=== PATIENT | female | born 1940 | race Caucasian/White ===

== ENCOUNTER 2016-10-29 17:21 | Inpatient (IN) | payer MEDICARE, MEDICAID ==
[~2016-10-29] VITALS: Ht 160 cm; Wt 117.9 kg
--- NOTE | ~2016-10-29 | HEMODYNAMI ---
PATIENT:JARET CASTILLO MEDICAL RECORD: [id number] : 38 [place] [id number] ADMISSION DATE: 10/29/16 Generatedon:11/09/201612:21 Patient name: JARET CASTILLO Patient #: [id number] SSN: : Date of study: 11/09/2016 Page: Of Hemodynamic Procedure Report Patient Data Patient Demographics Procedure consent was obtained First Name: JARET Gender: Female Last Name: ANNA : 1940 Middle Initial: L Age: 76 year(s) Patient #: [id number] Race: Unknown Additional ID: [id number] Contact details Address: [address] [address] State: [place] City: [place] Zip code: [address] Admission Admission Data Admission Date: 10/29/2016 Admission Time: 20:02 Room #: [facility] Height (in.): 63 BSA: 2.16 (m2) Height (cm.): 160.02 BMI: 45.88 (kg/m2) Weight (lbs.): 259 Weight (kg.): 117.48 Procedure Procedure Types Cath Procedure Peripheral Cath Diagnostic Procedure Cath Peripheral Biliary Percutaneous Cholecystostomy Procedure Description Procedure Date Procedure Date: 11/09/2016 Procedure Start Time: 12:04 Procedure Staff Name Function Jeremiah Cavanaugh MD Performing Physician Lawrence Cobos RT Scrub Karolina Stanley RT Greenskeeper Danyelle Esparza RN Nurse Cori Brown RN Nurse Karolina Stanley RT Monitor Procedure Data Cath Procedure Fluoroscopy Diagnostic fluoroscopy Total fluoroscopy Time: 0.8 time: 0.8 min min Diagnostic fluoroscopy Total fluoroscopy dose: 27 dose: 27 mGy mGy Procedure Medications Medication Administration Route Dosage Fentanyl I.V. 50 mcg Rocephin I.V. 1 g Zofran I.V. 4 mg Hemodynamics Rest BSA: 2.16 (m2) O2 Consumption: Estimated: 190.09 (ml/min) O2 Consumption indexed : Estimated:88 (ml/min/m) Heart Rate: 64 (bpm) Snapshots Pre Cath Intra NCS Post Cath Vital Signs Time Heart Resp SPO2 NIBP (mmHg) Rhythm Pain Status Sedation Rate (ipm) (%) Level (bpm) 11:52:39 63 11 100 166/70(131) NSR 5 (11) , Very 10(A) distressing 11:57:28 63 13 99 147/66(115) NSR 5 (11) , Very 10(A) distressing 12:02:14 62 13 98 157/67(108) NSR 4 (11) , 10(A) Distressing 12:07:05 63 11 99 155/67(107) NSR 3 (11) , 10(A) Tolerable 12:11:52 63 12 100 157/62(113) NSR 2 (11) , 10(A) Uncomfortable 12:16:45 61 11 99 145/64(104) NSR 0 (11) , No 10(A) pain Medications Time Medication Route Dose Verified Delivered Reason Notes Effectiv eness by by 12:03:13 Fentanyl I.V. 50 Danyelle Danyelle for mcg Vilma Vilma sedation RN RN 12:07:35 Rocephin I.V. 1 g Danyelle Danyelle for Vilma Vilma prophylaxis RN RN 12:13:21 Zofran I.V. 4 mg Danyelle Danyelle for nausea Vilma Vilma RN collator Log Time Note 11:17:42 Patient Weight : 259 kg 11:17:48 Patient Height : 63 cm 11:19:25 Use device set IR Diagnostic 11:19:27 Sterile Angiographic Pack opened to sterile field. 11:19:28 Bag Decanter opened to sterile field. 11:34:14 Time tracking: Regular hours 11:44:42 Plan of Care:Hemodynamics will remain stable., Cardiac rhythm will remain stable., Comfort level will be maintained., Respiratory function will remain adequate., Patient/ family verbilizes understanding of procedure., Procedure tolerated without complication., Recovers from procedure without complications.. 11:44:47 Signed procedure consent form obtained from patient. 11:44:48 - 11:45:01 H&P Date Dictated: 11/09/2016 Within 30 days and on chart.. 11:45:03 Pre-procedure instructions explained to patient. 11:45:04 Pre-op teaching completed and patient verbalized understanding. 11:45:08 Family in waiting room. 11:45:12 Patient NPO since Midnight. 11:45:14 - 11:45:23 ----Pre-sedation anethsthesia assessment.---- 11:45:27 Previous problem with sedation/anesthesia? No ? 11:45:29 Snore? Yes 11:49:25 Sleep apnea? Yes 11:49:27 Deviated septum? No 11:49:29 Opens mouth fully? Yes 11:49:31 Sticks out tongue? Yes 11:49:49 Airway obstruction? No but has cad 11:49:54 Dentures? No ? 11:50:06 IV patent on arrival in Left upper armpicc line with 0.9% NaCl at [facility]. 11:50:30 Right abdomen area was prepped with chlora-prep and draped in sterile fashion 11:50:34 Alarms reviewed by Macy Fuentes 11:50:35 Sharps counted by scrub and verified by Miladys 11:50:36 - 11:50:57 ECG and BP/O2 sat monitors applied to patient. 11:50:58 Vital chart was started 11:51:00 Baseline sample Acquired. 11:51:02 Full Disclosure recording started 11:51:03 - 12:00:25 CHIBA 18 X 15 needle opened to sterile field. 12:00:27 Cook BENTSON 145cm guide wire opened to sterile field. 12:02:41 Patient diabetic? No. 12:02:47 Physician arrived 12:03:13 Fentanyl 50 mcg I.V. was administered by Danyelle Esparza RN; for sedation; 12:03:55 --------ALL STOP TIME OUT------ 12:03:56 Final Timeout: patient, procedure, and site verified with staff and physician. All members of the team are in agreement. 12:04:15 Physical assessment completed. ASA score P 3 - A patient with severe systemic disease as per Jeremiah Cavanaugh MD. 12:04:20 Sedation plan: IV Moderate Sedation Fentanyl 12:04:26 Procedure started. 12:04:33 Local anesthetic to Abdominal area with Lidocaine 1% by Jeremiah Cavanaugh MD.INITIAL ACCESS ONLY 12:07:35 Rocephin 1 g I.V. was administered by Danyelle Esparza RN; for prophylaxis; 12:13:21 Zofran 4 mg I.V. was administered by Danyelle Esparza RN; for nausea; 12:14:38 Abscession 8Fr drainage catheter opened to sterile field. 12:14:49 STOPCOCK 3-WAY LARGE BORE opened to sterile field. 12:15:12 8fr abscession drain placed in the gallbladder 12:15:27 Procedure ended.(Physican Out) 12:15:39 Fluoroscopy time 00.80 minutes. 12:15:44 Fluoroscopy dose: 27 mGy 12:15:44 Flurop Dose total: 27 12:16:13 Procedure and supply charges have been captured, reviewed, submitted an d are correct. 12:21:07 Vital chart was stopped Device Usage Item Name Manufacture Quantity Catalog Hospital Part Current [facility] l Lot# / Number Charge Number Stock Stock Serial# Code Sterile Cardinal 1 [id number] Angiographic Health Pack Bag Decanter [employer] 1 [id number] 5 [employer] CHIBA 18 X [facility] 1 [id number] 5 15 needle [employer] [facility] 1 [id number] [id number] 5 [id number] 145cm guide wire Abscession Angiodynamics 1 [id number] 248638 [id number] [id number] 5 8Fr drainage [facility] [id number] [id number] 5 [id number] 3-WAY LARGE BORE Signature Audit [place] Stage Time Signature Unsigned Intra-Procedure 11/09/2016 Karolina Stanley 12:21:05 PM RT(R) Signatures Monitor : Karolina Stanley RT Signature : Date : Time : [address] [place] [address]
[2016-10-29 18:44] LABS: BASOPHILS 0.1 % (0.0-2.0); EOSINOPHILS 0.1 % (0-7); HEMOGLOBIN 10.7 g/dL (12-16); IMMATURE GRANULOCYTES 0.1 % (0-5); LYMPHOCYTES 4.9 % (15-50); MCH 29.4 pg (26.0-34.0); MCHC 32.4 g/dL (31.0-37.0); MCV 90.7 fL (80.0-100.0); MEAN PLATELET VOLUME 10.3 fL (7.4-10.4); MONOCYTES 5.9 % (2-11); NEUTROPHILS 88.9 % (40-80); PLATELET COUNT 153 10x3/uL (130-400); RBC 3.64 10x6/uL (4.00-5.40); WBC 15.9 10x3/uL (4.8-10.8)
[2016-10-29 19:02] LABS: ALBUMIN 3.1 g/dL (3.4-5.0); ALKALINE PHOSPHATASE 139 U/L (46-116); ALT (SGPT) 25 U/L (10-68); BILIRUBIN - TOTAL 1.59 mg/dL (0.2-1.3); CALC OSMOLALITY 303 mosm/kg (275-300); CALCIUM 8.8 mg/dL (8.5-10.1); CARBON DIOXIDE 29.8 mmol/L (21.0-32.0); CHLORIDE - SERUM 101 mmol/L (98-107); CREATININE - SERUM 2.2 mg/dL (0.6-1.3); GLUCOSE 255 mg/dL (74-106); PROTEIN - SERUM 7.5 g/dL (6.4-8.2); SODIUM 139 mmol/L (136-145); UREA NITROGEN 60 mg/dL (7-18); eGFR NON AFRICAN AMERICAN 23 mL/min (90-120)
[2016-10-29 19:17] LABS: CKMB 1.2 U/L (0.0-3.6); PRO BNP 9145 pg/mL (0-450)
[2016-10-29 19:18] LABS: TROPONIN-I 0.256 ng/mL (0.000-0.060)
[2016-10-29 20:20] LABS: APTT 34.7 SECONDS (22.8-39.4); INR 1.85 (0.85-1.17); PROTIME 21.3 SECONDS (11.6-15.0)
--- NOTE | 2016-10-29 22:23 | NUR ---
RECIEVED PT TO FLOOR FROM ED VIA STRETCHER. PT ASSISTED WITH TRANSFER TO BED. ALERT AND ORIENTED AND ABLE TO VERBALIZE NEEDS. IV IS PATENT AND SALINE LOC. O2 @ 4 PER NASAL CANNULA. PT DENIES ANY PAIN AT THIS TIME. NO NEEDS ARE VERBALIZED AT THIS TIME. VSS. PT IS ORIENTED TO ROOM AND USE OF CALL LIGHT. WILL CONTINUE TO MONITOR. SIDE RAILS ARE UP X 2. BED IS IN LOWEST POSITION. BED ALARM IS ON FOR SAFETY. CALL LIGHT IS WITHIN REACH.
[2016-10-30] MEDS ORDERED: CORDARONE200 MG PO (00:29)
[2016-10-30] MEDS ORDERED: LEVOTHYROXINE50 MCG PO (00:29)
[2016-10-30] MEDS ORDERED: COUMADIN3 MG PO ×2 (00:31→00:32)
[2016-10-30] MEDS ORDERED: FUROSEMIDE40 MG PO ×2 (00:33)
[2016-10-30] MEDS ORDERED: HYDROCODONE-APA1 TAB PO (00:34)
[2016-10-30] MEDS ORDERED: VALIUM 2 MG TAB2 MG PO (00:35)
[2016-10-30] MEDS ORDERED: LEVAQUIN250 MG PO (00:35)
[2016-10-30] MEDS ORDERED: OMEPRAZOLE20 M1 PO (00:36)
[2016-10-30] MEDS ORDERED: LIPITOR80 MG PO (00:36)
[2016-10-30] MEDS ORDERED: PROZAC20 MG PO (00:37)
[2016-10-30] MEDS ORDERED: LANTUS INSULIN10 ML SC (00:38)
[2016-10-30] MEDS ORDERED: NOVOLOG100 U/M1 SC (00:38)
[2016-10-30] MEDS ORDERED: ALPHAGAN P15 ML EACH EYE (00:39)
[2016-10-30] MEDS ORDERED: ZYLOPRIM100 MG PO (00:39)
[2016-10-30] MEDS ORDERED: PROBIOTIC1 EAC1 PO (00:40)
[2016-10-30] MEDS ORDERED: OMEGA 3 FISH OI1 CAP PO (00:40)
[2016-10-30] MEDS ORDERED: TYLENOL PM1 TAB PO (00:41)
--- NOTE | 2016-10-30 00:45 | NUR ---
ADMIT ASSESSMENT COMPLETED. BUMEX HUNG PER ORDER. PT RECIEVED 12 UNITS INSULIN PER SLIDING SCALE FOR GHQI=231. NO NEEDS ARE VOICED. WILL MONITOR. SIDE RAILS X 2. BED LOW. BED ALARM ON. CALL LIGHT IN REACH.
[2016-10-30 04:00] VITALS: BP 131/46
[2016-10-30 04:03] VITALS: BP 148/58; BMI 44.3
[2016-10-30 06:27] LABS: BASOPHILS 0.1 % (0.0-2.0); EOSINOPHILS 0.2 % (0-7); HEMATOCRIT 31.7 % (36.0-48.0); HEMOGLOBIN 10.2 g/dL (12-16); IMMATURE GRANULOCYTES 0.2 % (0-5); LYMPHOCYTES 17.6 % (15-50); MCH 29.3 pg (26.0-34.0); MCHC 32.2 g/dL (31.0-37.0); MCV 91.1 fL (80.0-100.0); MONOCYTES 10.8 % (2-11); NEUTROPHILS 71.1 % (40-80); PLATELET COUNT 142 10x3/uL (130-400); RBC 3.48 10x6/uL (4.00-5.40); RDW 15.4 % (11.5-14.5); WBC 12.2 10x3/uL (4.8-10.8)
[2016-10-30 07:10] LABS: CALCIUM 8.3 mg/dL (8.5-10.1); CARBON DIOXIDE 24.6 mmol/L (21.0-32.0); CHLORIDE - SERUM 102 mmol/L (98-107); CKMB 1.4 U/L (0.0-3.6); CREATINE KINASE 75 UL (21-215); POTASSIUM - SERUM 4.2 mmol/L (3.5-5.1); SODIUM 140 mmol/L (136-145); UREA NITROGEN 63 mg/dL (7-18); eGFR NON AFRICAN AMERICAN 25 mL/min (90-120)
[2016-10-30 07:11] LABS: CALC OSMOLALITY 297 mosm/kg (275-300); GLUCOSE 109 mg/dL (74-106)
[2016-10-30 07:12] LABS: TROPONIN-I 0.574 ng/mL (0.000-0.060)
--- NOTE | 2016-10-30 07:53 | NUR ---
AWAKE AND ALERT. ORIENTED X3. NO C/O AT THIS TIME. LUNGS ARE CLEAR BUT DIMINISHED. DENIES COUGH. SKIN IS INTACT WITHOUT REDNESS EXCEPT LEFT LEG WHICH IS REDDENED AND EDEMATOUS, RIGHT LEG IS ALSO EDEMATOUS BUT NOT REDDENED. WILL MONITOR. IV TO LEFT UPPER ARM IS PATENT WITHOUT REDNESS AT INSERTION SITE. DENIES NEEDS AT THIS TIME.
[2016-10-30 08:13] VITALS: BP 130/40
--- NOTE | 2016-10-30 10:24 | NUR ---
RESTING QUIETLY WITH EYES CLOSED. RESPIRATIONS EVEN AND UNLABORED.
--- NOTE | 2016-10-30 11:12 | NUR ---
Patient Name: JARET CASTILLO Admission Status: ER Accout number: [id number] Admission Date: 10-29-2016 : 1940 Admission Diagnosis: Attending: DANITZA Current LOS: 1 Anticipated DC Date: 11-02-2016 Planned Disposition: Home with Home Health Primary Insurance: MEDICARE A & B Discharge Planning Comments: CM MET WITH PATIENT AND DAUGHTERS (ALEXA, AND CORWIN) REGARDING D/C NEEDS AND PLANS. PATIENT STATED SHE LIVES ALONE AND IS PARTIAL DEPENDENT WITH HER CARE. PATIENT HAS A ROLATOR WALKER, WHEELCHAIR, C-PAP, SHOWER CHAIR, AND BS COMMODE AT HOME. PATIENT HAS NO STEPS OR STAIRS TO ENTER HER HOME. PATIENTS PCP IS DR. ROMAN RICARDO IN [place] AND USES [email or web address]. PATIENT IS CURRENT WITH [facility] AND THE AIDE HELPS HER WITH HER BATH, AND DRESSING. CM WILL CONTINUE TO FOLLOW PATIENT WITH D/C NEEDS AND PLANS. PCP DR. ROMAN RICARDO [facility]- [phone] ALEXA CALVIN (DAUGHTER) [phone] CORWIN YELENA (DAUGHTER) [phone] Jewel Oliving Machine Operator: Yady Harmon Is the patient Alert and Oriented? Yes 0 * How many steps to enter\exit or inside your home? 0 0 * PCP DR. ROMAN RICARDO ([facility]) 0 * Pharmacy [facility] 0 * Preadmission Environment Home Alone 0 * ADLs Independent 0 * Equipment Bedside Commode CPAP Rolling Walker Shower Chair Wheelchair 0 * List name and contact numbers for known caregivers / representatives who currently or will assist patient after discharge: ALEXA CALVIN (DAUGHTER) [phone] CORWIN YELENA (DAUGHTER) [phone] 0 * Community resources currently utilized Home Health 0 * Please name any agencies selected above. [facility] 0 * Additional services required to return to the preadmission environment? Yes 0 * Can the patient safely return to the preadmission environment? Yes 0 * Has this patient been hospitalized within the prior 30 days at any hospital? No 0 Grand Total: 0
[2016-10-30 12:18] VITALS: BP 122/47
[2016-10-30 14:15] VITALS: Ht 160 cm; Wt 117.9 kg
[2016-10-30 15:52] VITALS: BP 123/42
--- NOTE | 2016-10-30 18:43 | NUR ---
ATE ALL OF SUPPER. NO C/O AT THIS TIME. NO CHANGES NOTED. DENIES NEEDS.
[2016-10-30 19:00] VITALS: BP 118/84
--- NOTE | 2016-10-30 20:19 | NUR ---
PT AWAKE AND ALERT ORINETED X 3 LUNGS WITH BILATERL WHEEZES NOTED. BOTH INSPIRATORY AND EXPIRATORY WHEEZES. BSA X 4 QUADS. BUMEX DRIP AT 5 ML/HR NOTED TO PATENT LEFT AC PIV. WILL MONITOR.
--- NOTE | 2016-10-30 23:58 | NUR ---
REPOSITIONED IN BED FOR COMFORT CALL LIGHT IN REACH SIDE RAILS UP X 2 NO DISTRESS NOTED
[2016-10-31 04:00] VITALS: BP 137/49
[2016-10-31 06:34] LABS: BASOPHILS 0.1 % (0.0-2.0); EOSINOPHILS 0.8 % (0-7); HEMOGLOBIN 9.5 g/dL (12-16); IMMATURE GRANULOCYTES 0.3 % (0-5); LYMPHOCYTES 15.8 % (15-50); MCH 29.1 pg (26.0-34.0); MCHC 31.7 g/dL (31.0-37.0); MEAN PLATELET VOLUME 10.1 fL (7.4-10.4); MONOCYTES 7.9 % (2-11); NEUTROPHILS 75.1 % (40-80); PLATELET COUNT 154 10x3/uL (130-400); RBC 3.26 10x6/uL (4.00-5.40); RDW 15.2 % (11.5-14.5)
[2016-10-31 06:43] LABS: INR 1.67 (0.85-1.17); PROTIME 19.6 SECONDS (11.6-15.0)
[2016-10-31 07:19] LABS: ALBUMIN 2.6 g/dL (3.4-5.0); ANION GAP 11.8 mmol/L (8-16); BILIRUBIN - TOTAL 1.3 mg/dL (0.2-1.3); CALCIUM 8.5 mg/dL (8.5-10.1); CARBON DIOXIDE 29.1 mmol/L (21.0-32.0); PHOSPHOROUS 5.1 mg/dL (2.5-4.9); POTASSIUM - SERUM 3.9 mmol/L (3.5-5.1); PROTEIN - SERUM 6.7 g/dL (6.4-8.2); URIC ACID 5.9 mg/dL (2.6-7.2)
[2016-10-31 07:20] LABS: CREATININE - SERUM 2.8 mg/dL (0.6-1.3)
--- NOTE | 2016-10-31 07:35 | NUR ---
ASSISTED PT UP TO THE BEDSIDE COMMODE AT THIS TIME. VOIDED 400ML WITHOUT DIFFICULTY. ASSISTED PT BACK TO BED AT THIS TIME. DENIES FURTHER NEEDS AT PRESENT TIME. WILL CONTINUE WITH PLAN OF CARE.
--- NOTE | 2016-10-31 08:32 | NUR ---
SCHEDULED MEDICATIONS ADMINISTERED AT THIS TIME. ASSESSMENT PERFORMED PER FLOWSHEET. PT DENIES NEEDS AT THIS TIME. CALL LIGHT IN REACH, WILL CONTINUE WITH PLAN OF CARE.
[2016-10-31 08:50] VITALS: BP 146/55
--- NOTE | 2016-10-31 10:59 | NUR ---
URINE SAMPLE OBTAINED AND SENT TO THE LAB AT THIS TIME FOR UA PER ORDER.
[2016-10-31 12:02] LABS: APPEARANCE CLEAR (CLEAR); BILIRUBIN NEGATIVE (NEGATIVE); COLOR YELLOW (YELLOW); GLUCOSE NEGATIVE (NEGATIVE); KETONE NEGATIVE (NEGATIVE); LEUKOCYTE ESTERASE NEGATIVE (NEGATIVE); NITRITE NEGATIVE (NEGATIVE); PROTEIN NEGATIVE (NEGATIVE); SPECIFIC GRAVITY 1.015 (1.005-1.020); UROBILINOGEN NORMAL (NORMAL)
[2016-10-31 12:04] LABS: BACTERIA FEW /hpf (NONE SEEN); EPITHELIAL CELLS 0-5 /hpf (0-5); HYALINE CAST 0-5 /lpf (NONE SEEN); RED CELLS - URINE 0-5 /hpf (0-5); WHITE CELLS - URINE 0-5 /hpf (0-5)
[2016-10-31 12:48] VITALS: BP 91/40
--- NOTE | 2016-10-31 13:17 | NUR ---
NUTRITION MONITORING & EVAL CHART REVIEWED, PT VISIT. TOLERATING ADA DIET. 25 TO 50% INTAKE RECENT MEALS. WILL CONTINUE TO PROVIDE DIET, MONITOR PT PROGRESS, RD FOLLOWING
[2016-10-31 16:34] VITALS: BP 141/48
--- NOTE | 2016-10-31 18:00 | NUR ---
PRN BUPRENEX ADMINISTERED AT THIS TIME FOR PAIN 04/04.
[2016-10-31 19:00] VITALS: BP 131/52
--- NOTE | 2016-10-31 20:15 | NUR ---
ASSISTED THE PATIENT UP TO THE BEDSIDE COMMODE AND HELPED HER BACK TO BED. PATIENT DENIES OTHER NEEDS AT THIS TIME. BED IN LOWEST POSITION AND CALL LIGHT WITHIN REACH. ENCOURAGED PATIENT TO CALL IF SHE HAS OTHER NEEDS.
[2016-11-01] VITALS: BP 101/46
[2016-11-01 04:00] VITALS: BP 139/56
[2016-11-01 06:29] LABS: BASOPHILS 0.2 % (0.0-2.0); HEMOGLOBIN 9.3 g/dL (12-16); IMMATURE GRANULOCYTES 0.2 % (0-5); LYMPHOCYTES 14.6 % (15-50); MCH 29.3 pg (26.0-34.0); MCHC 32.1 g/dL (31.0-37.0); MCV 91.5 fL (80.0-100.0); MEAN PLATELET VOLUME 10.2 fL (7.4-10.4); MONOCYTES 7.3 % (2-11); NEUTROPHILS 76.7 % (40-80); PLATELET COUNT 176 10x3/uL (130-400); RBC 3.17 10x6/uL (4.00-5.40); WBC 12.1 10x3/uL (4.8-10.8)
[2016-11-01 06:43] LABS: INR 1.75 (0.85-1.17); PROTIME 20.4 SECONDS (11.6-15.0)
[2016-11-01 06:51] LABS: ALBUMIN 2.5 g/dL (3.4-5.0); CALCIUM 8.4 mg/dL (8.5-10.1); CARBON DIOXIDE 28.6 mmol/L (21.0-32.0); CREATININE - SERUM 2.6 mg/dL (0.6-1.3); POTASSIUM - SERUM 3.6 mmol/L (3.5-5.1); PROTEIN - SERUM 6.6 g/dL (6.4-8.2)
--- NOTE | 2016-11-01 07:40 | NUR ---
PATIENT IS AWAKE AND ALERT, NO NEEDS AT THIS TIME.
[2016-11-01 08:47] VITALS: BP 138/55
[2016-11-01 13:06] VITALS: BP 116/46
--- NOTE | 2016-11-01 14:00 | NUR ---
SPOKE WITH PATIENT ABOUT HER COUMDAIN AND SHE SAID SHE TAKES 3 MG DAILY EXCEPT ON MONDAYS AND WEDNESDAYS SHE TAKES 4.5 MG ONLY, NOT IN ADDITION TO THE 3 MG.
--- NOTE | 2016-11-01 15:00 | NUR ---
ASSISTED PATIENT UP OUT OF BED TO TOILET ON BSC, BUT SHE WAS NOT ABLE TO MAKE IT AND SHE URINATED ON THE FLOOR, PATIENT C/O RIGHT SHOULDER PAIN AND SHE REQUESTS A BHATIA CATH, SAYS "I DON'T WANT ONE, BUT I CAN'T MOVE WITH THIS SHOULDER"
--- NOTE | 2016-11-01 15:32 | NUR ---
SPOKE TO NURSE PRACTITIONER TO SEE IF WE MAY INSERT A BHATIA, SHE SAID YES, ORDER ONE.
[2016-11-01 16:23] VITALS: BP 131/45
--- NOTE | 2016-11-01 16:30 | NUR ---
PATIENT WAS GOING BACK AND FORTH ON BHATIA, BUT FINALLY SHE SAID SHE WANTED ONE. 16 HEBREW BHATIA CATH INSERTED, CLEAR YELLOW URINE IMMEDIATE RELEASE.
--- NOTE | 2016-11-01 17:30 | NUR ---
PATIENT ASKED FOR HEAT AND ICE PACK, PROVIDED ICE PACK TO RIGHT SHOULDER.
--- NOTE | 2016-11-01 18:00 | NUR ---
PATIENT IS CALM, SHE C/O PAIN TO SHOULDER IF SHE MOVES. SHE SAYS "THE ICE PACK DOES HELP". NO NEEDS AT THIS TIME.
[2016-11-01 20:00] VITALS: BP 151/60
--- NOTE | 2016-11-01 22:48 | NUR ---
ASSESSED AT THE BEGINNING OF THE SHIFT. PT IS ALERT AND ORIENTED, ABLE TO VERBALIZE NEEDS. HER IV SITE WAS PUFFY SO IT WAS D/C'ED AND A NEW IV WAS STARTED IN THE RIGHT A/C WITH A 2 GAUGE TO GIVE FLUIDS ORDERED. SHE IS C/O RIGHT SHOULDER PAIN AND WE HAVE AN ICEBAG IN PLACE. SHE ALSO HAS A BHATIA TO ASSIST AND O2 AT 2 LITERS. BILATERAL LOWER LEGS ARE PUFFY WITH EDEMA AND OFF COLOR BLUE. HER BLOOD SUGAR AT BEDTIME WAS 163 AND SHE GOT HER INSULIN AND A SNACK. THE BED IS LOW,RAILS UP X'S 2 WITH THE CALL LIGHT AT HAND.
[2016-11-02] VITALS (7 sets, daily range): BP systolic 112–143; BP diastolic 52–62
[2016-11-02 05:07] LABS: BASOPHILS 0.1 % (0.0-2.0); EOSINOPHILS 0.7 % (0-7); HEMATOCRIT 30.4 % (36.0-48.0); HEMOGLOBIN 10.3 g/dL (12-16); IMMATURE GRANULOCYTES 0.2 % (0-5); LYMPHOCYTES 14.4 % (15-50); MCH 30.4 pg (26.0-34.0); MCHC 33.9 g/dL (31.0-37.0); MCV 89.7 fL (80.0-100.0); MEAN PLATELET VOLUME 10.1 fL (7.4-10.4); MONOCYTES 5.8 % (2-11); NEUTROPHILS 78.8 % (40-80); PLATELET COUNT 191 10x3/uL (130-400); RBC 3.39 10x6/uL (4.00-5.40); RDW 14.9 % (11.5-14.5)
[2016-11-02 05:14] LABS: WBC 15.3 10x3/uL (4.8-10.8)
[2016-11-02 05:19] LABS: INR 1.86 (0.85-1.17); PROTIME 21.4 SECONDS (11.6-15.0)
[2016-11-02 05:45] LABS: ALBUMIN 2.7 g/dL (3.4-5.0); ANION GAP 14.6 mmol/L (8-16); BILIRUBIN - TOTAL 1.07 mg/dL (0.2-1.3); CALCIUM 9.2 mg/dL (8.5-10.1); CARBON DIOXIDE 27.5 mmol/L (21.0-32.0); CREATININE - SERUM 2.4 mg/dL (0.6-1.3); PHOSPHOROUS 3.9 mg/dL (2.5-4.9); POTASSIUM - SERUM 3.1 mmol/L (3.5-5.1); PROTEIN - SERUM 7.3 g/dL (6.4-8.2)
--- NOTE | 2016-11-02 06:15 | NUR ---
PT HAS COMPLAINED OF SOME SOB DURING THE LATER HALF OF THE NIGHT. RESP. CAME AND GAVE HER A TREATMENT WHICH HELPED SOME BUT THEN SHE C/O HER BACK HURTING AND RETURN OF SOB. AT THIS TIME SHE RECEIVED BUPRENEX ORDERED FOR PAIN. A LITTLE LATER MONITORS CALLED AND STATED THERE WAS A CHANGE IN THE HEART RATE AND RHYTHM. A EKG WAS DONE AND THE RESULTS WERE CALLED INTO DR GRIFFIN. HE ORDERED AN EXTRA DOSE OF 200 MG CORDARONE WHICH WAS GIVEN ORDERED. FAMILY CAME UP AND ARE SITTING WITH THE PATIENT AT THIS TIME.
--- NOTE | 2016-11-02 07:20 | NUR ---
RESTING IN BED, FAMILY AT BEDSIDE, DENIES NEEDS, BED LOWEST POSITION, CALL LIGHT IN REACH, SIDE RAILS UP X2
--- NOTE | 2016-11-02 07:30 | NUR ---
PATIENT IN BED WITH IV INTACT. NO COMPLAINTS OR SIGNS OF DISTRESS. FAMILY AT BEDSIDE. CALL LIGHT WITHIN REACH.
--- NOTE | 2016-11-02 09:00 | NUR ---
VOMITED UP BREAKFAST, STATES "FEELS BETTER AFTER VOMITING, I WASN'T HUNGRY BUT MADE MYSELF EAT", ZOFRAN GIVEN PER ORDER
[2016-11-03] VITALS: BP 113/74
[2016-11-03 04:00] VITALS: BP 136/62
[2016-11-03 07:24] LABS: BASOPHILS 0.1 % (0.0-2.0); EOSINOPHILS 0.2 % (0-7); IMMATURE GRANULOCYTES 0.3 % (0-5); LYMPHOCYTES 8.2 % (15-50); MCHC 32.3 g/dL (31.0-37.0); MCV 89.9 fL (80.0-100.0); MEAN PLATELET VOLUME 10.3 fL (7.4-10.4); MONOCYTES 7.5 % (2-11); NEUTROPHILS 83.7 % (40-80); PLATELET COUNT 215 10x3/uL (130-400); RBC 3.45 10x6/uL (4.00-5.40); RDW 15.1 % (11.5-14.5)
--- NOTE | 2016-11-03 07:30 | NUR ---
RECIEVED PT DURING WALKING ROUNDS. PT RESTING IN BED WITH NO COMPLAINTS OF PAIN OR DISCOMFORT AT THIS TIME. ASSESSMENT DONE PER FLOWSHEET . PT O2 WAS LOW AT THIS TIME. INSTRUCTED PT ON TAKING DEEP BREATH THROUGH THE NOSE, WAS ABLE TO GET PTS O2 TO 92% ON 3.5L. INSTRUCTED PT ON USE OF I.S. BED IN LOW POSITION AND CALL LIGHT WITHIN REACH. WILL CONTINUE TO MONITOR.
[2016-11-03 07:53] LABS: ALBUMIN 2.6 g/dL (3.4-5.0); ANION GAP 16.2 mmol/L (8-16); BILIRUBIN - TOTAL 1.2 mg/dL (0.2-1.3); CALCIUM 9.2 mg/dL (8.5-10.1); CARBON DIOXIDE 26.3 mmol/L (21.0-32.0); CREATININE - SERUM 2.7 mg/dL (0.6-1.3); POTASSIUM - SERUM 3.5 mmol/L (3.5-5.1); PROTEIN - SERUM 7.1 g/dL (6.4-8.2)
[2016-11-03 07:54] LABS: INR 2.62 (0.85-1.17); PROTIME 28.2 SECONDS (11.6-15.0)
[2016-11-03 08:17] LABS: PHOSPHOROUS 5.6 mg/dL (2.5-4.9)
[2016-11-03 09:32] VITALS: BP 132/57
--- NOTE | 2016-11-03 10:41 | NUR ---
Nutrition Follow Up: Chart reviewed. Pt with N/V. Pt is eating 66% meal avg on a diabetic diet. +BM 11/03/16. I>O. Labs noted - BUN, Cr, Glucose elevated. Meds noted including Lantus, Lasix, Humalog. Pt with fair po intake but with some N/V. Rec continue current diet as tolerated. RD following.
--- NOTE | 2016-11-03 11:05 | NUR ---
BHATIA CLAMPED AT THIS TIME TO COLLECT URINE PER ORDER. PT RESTING COMFORTABLY WITH NO COMPLAINTS. BED IN LOW POSITION AND CALL LIGHT WITHIN REACH. WILL CONTINUE TO MONITOR.
--- NOTE | 2016-11-03 12:10 | NUR ---
URINE COLLECTED AND SENT TO LAB AT THIS TIME.
--- NOTE | 2016-11-03 12:45 | NUR ---
AWAKE ALERT COLOR ADQ SKIN WARM AND DRY RESP EVEN AND UNLABORED AT PRESNT DENIES ANY NEEDS AT THIS TIME.
[2016-11-03 12:55] LABS: APPEARANCE HAZY (CLEAR); BILIRUBIN NEGATIVE (NEGATIVE); COLOR YELLOW (YELLOW); GLUCOSE NEGATIVE (NEGATIVE); KETONE NEGATIVE (NEGATIVE); LEUKOCYTE ESTERASE 1+ (NEGATIVE); NITRITE NEGATIVE (NEGATIVE); PROTEIN NEGATIVE (NEGATIVE); SPECIFIC GRAVITY 1.015 (1.005-1.020); UROBILINOGEN NORMAL (NORMAL)
[2016-11-03 12:58] LABS: BACTERIA MANY /hpf (NONE SEEN); EPITHELIAL CELLS 0-5 /hpf (0-5); WHITE CELLS - URINE 0-5 /hpf (0-5)
--- NOTE | 2016-11-03 13:00 | NUR ---
INFORMED OF PT RESULTS OF URINE SPECIMEN AT THIS TIME. INFORMED THAT ORDERS WOULD BE PUT. WILL CONTINUE PLAN OF CARE.
[2016-11-03 13:46] VITALS: BP 142/51
--- NOTE | 2016-11-03 13:49 | NUR ---
Rehab Prescreen order received. The patient will need a Physical therapy eval to see if the patient is able to tolerate therapy at this time. Will follow the patient at this time. Thank you for this referral! Britt Adams RN Clinical Liaison, [facility] Rehab/Des
[2016-11-03 19:18] VITALS: BP 144/61
[2016-11-03 20:00] VITALS: BP 107/67
[2016-11-04] VITALS: BP 101/62
--- NOTE | 2016-11-04 00:05 | NUR ---
PT LAYING IN BED NO DISTRESS OBSERVED IVP BUMEX INFUSING ORDERED CALL LIGHT IN REACH, RESPERATIONS EVEN AND UNLBAORED GEMERALIZED EDEMA NOTED TO ALL 4 EXTREMETIES AND BRUSING NOTED. PT DENIES PAIN AT THIS TIME WILL MONITOR
[2016-11-04 04:00] VITALS: BP 150/56
[2016-11-04 06:59] LABS: BASOPHILS 0.1 % (0.0-2.0); EOSINOPHILS 0.4 % (0-7); HEMATOCRIT 31.1 % (36.0-48.0); HEMOGLOBIN 10.2 g/dL (12-16); IMMATURE GRANULOCYTES 0.2 % (0-5); LYMPHOCYTES 10.6 % (15-50); MCH 29.1 pg (26.0-34.0); MCHC 32.8 g/dL (31.0-37.0); MCV 88.9 fL (80.0-100.0); MEAN PLATELET VOLUME 9.9 fL (7.4-10.4); MONOCYTES 7.6 % (2-11); NEUTROPHILS 81.1 % (40-80); PLATELET COUNT 216 10x3/uL (130-400); RDW 14.9 % (11.5-14.5); WBC 14.4 10x3/uL (4.8-10.8)
[2016-11-04 07:14] LABS: INR 3.43 (0.85-1.17); PROTIME 34.9 SECONDS (11.6-15.0)
[2016-11-04 07:28] LABS: ALBUMIN 2.5 g/dL (3.4-5.0); BILIRUBIN - TOTAL 0.98 mg/dL (0.2-1.3); CALCIUM 9.1 mg/dL (8.5-10.1); CARBON DIOXIDE 30.4 mmol/L (21.0-32.0); PHOSPHOROUS 5.7 mg/dL (2.5-4.9); POTASSIUM - SERUM 3.4 mmol/L (3.5-5.1); PROTEIN - SERUM 7.2 g/dL (6.4-8.2); THYROID STIMULATING HORMONE 12.03 uIU/mL (0.36-3.74)
[2016-11-04 09:00] VITALS: BP 147/63
--- NOTE | 2016-11-04 12:50 | NUR ---
SALINE LOCK IV. D/C BUMEX DRIP.
[2016-11-04 16:34] VITALS: BP 126/55
--- NOTE | 2016-11-04 21:06 | NUR ---
PT RESTING IN BED. C/O NAUSEA. PRN ZOFRAN GIVEN ORDERED. SCHEDULED MEDS GIVEN. ASSESSMENT COMPLETED. NO SIGNS OF DISTRESS NOTED. DENIES ANY OTHER NEEDS AT THIS TIME. BED LOW. CALL LIGHT IN REACH.
--- NOTE | 2016-11-04 21:11 | NUR ---
PATIENT VOMITTED SMALL AMOUNT. REPORTS FEELING SOMEWHAT BETTER.
[2016-11-04 23:13] VITALS: BP 112/52
--- NOTE | 2016-11-05 01:00 | NUR ---
NAUSEA/VOMITTING. PRN ZOFRAN GIVEN ORDERED.
--- NOTE | 2016-11-05 03:00 | NUR ---
PT IN BED WITH NO DISTRESS. RESPIRATIONS EVEN AND UNLABORED. SIDE RAILS X 2. BED LOW. CALL LIGHT IN REACH.
[2016-11-05 04:00] VITALS: BP 101/56
[2016-11-05 05:31] LABS: BASOPHILS 0.1 % (0.0-2.0); EOSINOPHILS 0.7 % (0-7); HEMATOCRIT 29.6 % (36.0-48.0); HEMOGLOBIN 9.6 g/dL (12-16); IMMATURE GRANULOCYTES 0.2 % (0-5); LYMPHOCYTES 12.2 % (15-50); MCH 28.7 pg (26.0-34.0); MCHC 32.4 g/dL (31.0-37.0); MCV 88.4 fL (80.0-100.0); MEAN PLATELET VOLUME 10.1 fL (7.4-10.4); MONOCYTES 7.8 % (2-11); PLATELET COUNT 235 10x3/uL (130-400); RBC 3.35 10x6/uL (4.00-5.40); RDW 14.6 % (11.5-14.5); WBC 12.1 10x3/uL (4.8-10.8)
[2016-11-05 06:14] LABS: ALBUMIN 2.4 g/dL (3.4-5.0); ANION GAP 14.7 mmol/L (8-16); BILIRUBIN - TOTAL 0.67 mg/dL (0.2-1.3); CALCIUM 8.6 mg/dL (8.5-10.1); CARBON DIOXIDE 29.8 mmol/L (21.0-32.0); CREATININE - SERUM 3.2 mg/dL (0.6-1.3); POTASSIUM - SERUM 3.5 mmol/L (3.5-5.1); PROTEIN - SERUM 6.1 g/dL (6.4-8.2)
[2016-11-05 08:37] VITALS: BP 141/48
--- NOTE | 2016-11-05 09:25 | NUR ---
PT AOX4 RESP EVEN AND NONLABORED PT. DENIES NEEDS AT THIS TIME BED AT LOWEST SETTING AND CALL LIGHT WITHIN REACH WILL CONTINUE TO MONITOR
--- NOTE | 2016-11-05 10:08 | CN ---
PATIENT NAME:JARET CASTILLO MEDICAL RECORD: [id number] : 36 LOCATION:[facility] ADMIT DATE: 10/29/16 ACCOUNT: [id number] CONSULTING PHYSICIAN: JESSICA RETANA MD REFERRING PHYSICIAN: CODI WOMACK MD DATE OF CONSULTATION: 10/30/2016 DIAGNOSES: 1. Shortness of breath, dyspnea on exertion. 2. Pulmonary edema. 3. Aortic stenosis, critical. 4. Hyperlipidemia. 5. Paroxysmal atrial fibrillation. 6. Renal insufficiency. 7. Sick sinus syndrome. 8. Status post pacemaker. HISTORY OF PRESENT ILLNESS: Mrs. Castillo is well known to us. She does not have a cardiomyopathy. Her ejection fraction is normal at 55% to 60% range. She has progressive aortic stenosis. Last echocardiogram was done in August that showed a valve area of 0.4 cm-squared. Her symptomatology is secondary to the valve and she is being considered for hospice before with this valve. She is not a candidate for a valve surgery at this point. She has not had chest pain or chest discomfort. Her EKG is with no ST-T abnormalities, shows left ventricular hypertrophy, paced atrial rhythm, and normal ventricular rhythm. PHYSICAL EXAMINATION: GENERAL APPEARANCE: Well-nourished, well-developed, appears stated age. Level of distress, comfortable. PSYCHIATRIC: Mental status, alert, normal affect. Orientation, oriented to time, place and person. EYES: Lids and conjunctiva, noninjected. No discharge, no pallor. ENT: Lips, teeth, gums, normal dentition. Oropharynx, no cyanosis, no pallor. NECK: Carotid arteries, bilateral normal upstroke, no bruits, no thrills. JUGULAR VEINS: No jugular venous pressure or distention. CERVICAL LYMPH NODES: Nontender, nonenlarged. THYROID: Not enlarged. Nontender. No nodules. LUNGS: Respiratory effort, unlabored. CHEST: Normal curvature. No thoracic deformity. No chest wall tenderness. Percussion, resonant. Auscultation, clear. No wheezes, no rales, no rhonchi. CARDIOVASCULAR: She has a harsh systolic murmur compatible with aortic stenosis. EXTREMITIES: No cyanosis, no edema. Peripheral pulses, full and equal in all extremities, except as noted. No bruits appreciated. ABDOMEN: Soft, nondistended. Normal aorta. No bruit. Nontender. No masses. Liver, nontender, no hepatomegaly. Spleen, nontender, no splenomegaly. MUSCULOSKELETAL: No joint tenderness. No joint swelling. No erythema. NEUROLOGICAL: Normal gait, normal strength, normal tone. SKIN: Warm and dry. REVIEW OF SYSTEMS: The patient reports easy bruising but reports no swollen glands. The patient reports no fever, no night sweats, no significant weight gain, no significant weight loss. No significant exercise tolerance. The patient reports no dry eyes, no irritation, no vision change. Patient reports no difficulty hearing and no ear pain. Patient reports no frequent nose bleeds CONSULT REPORT [id number] ANNA,JARET L or nose and sinus problems. Patient reports on arm pain on exertion. No shortness of breath while lying down. No history of heart murmur. Patient reports no cough, no wheezing or coughing up blood. Patient reports no abdominal pain, no vomiting. Normal appetite. No diarrhea and not vomiting blood. No nausea and no constipation. Patient reports no incontinence. No difficulty urinating. No hematuria. No increased frequency. Patient reports no muscle aches. No weakness, no arthralgias, no back pain. No swelling of the extremities. Patient reports no abnormal mole, no jaundice, no rashes. Reports no loss of consciousness. No weakness and no numbness. No seizures, dizziness, or headaches. The patient reports no depression, no sleep disturbance, feeling safe in a relationship and no alcohol abuse. Patient reports on fatigue. Reports no runny nose or sinus pressure. No itching, no hives, and no frequent sneezing. OVERALL IMPRESSION: Shortness of breath, dyspnea on exertion, this is secondary to the progressive aortic stenosis. She is on Lasix 40 mg a day. She uses IV Lasix in the acute setting for diuresis. She does have worsening renal insufficiency, but she still should respond to the IV diuresis long-term though this is a problem due to progressive aortic stenosis. We would consider increasing her Lasix therapy to b.i.d. as an outpatient. TRANSINT:[id number] Voice Confirmation ID: [id number] DOCUMENT ID: [id number] JESSICA RETANA MD at 1008 CC: [id number] DICTATION DATE: 10/30/16 1137 COMMUNICATION MANAGER: 10/30/16 1427 ADM IN [facility] [address] [facility] [address]
[2016-11-05 12:12] VITALS: BP 156/61
[2016-11-05 13:25] LABS: INR 4.88 (0.85-1.17); PROTIME 46.3 SECONDS (11.6-15.0)
--- NOTE | 2016-11-05 14:26 | NUR ---
Rehab Note- Physical therapy ordered. Awaiting patient's tolerance to therapy. Continued to be followed by nephrology. Will continue to follow the patient at this time. Britt Adams RN Clinical Liaison, [facility] Rehab/Des
[2016-11-05 16:58] VITALS: BP 146/56
[2016-11-05 20:00] VITALS: BP 123/54
--- NOTE | 2016-11-05 20:30 | NUR ---
PATIENT RESTING IN BED. NO SIGNS OF DISTRESS NOTED AT THIS TIME. SCHEDULED MEDS GIVEN. ASSESSMENT COMPLETED. DENIES ANY NEEDS AT THIS TIME. BED LOW CALL LIGHT IN REACH
--- NOTE | 2016-11-06 02:15 | NUR ---
PATIENT C/O SEVERE NAUSEA. PRN ZOFRAN GIVEN ORDERED. DENIES ANY OTHER NEEDS AT THIS TIME.
[2016-11-06 04:00] VITALS: BP 102/48
--- NOTE | 2016-11-06 07:59 | NUR ---
PT AOX4 RESP EVEN AND NONLABORED PT. DENIES NEEDS AT THIS TIME. IV IN LEFT AC PATENT AND INTACT. BED AT LOWEST SETTING AND CALL LIGHT WITHIN REACH WILL CONTINUE TO MONITOR
[2016-11-06 08:20] VITALS: BP 132/48
--- NOTE | 2016-11-06 08:48 | NUR ---
AWAKE AND ALERT. ORIENTED X3. NO C/O AT THIS TIME. SITTING UP IN BED EATING BREAKFAST. LUNGS ARE CLEAR BILATERALLY, NO COUGH NOTED. SKIN IS INTACT WITHOUT REDNESS. BHATIA PATENT WITH CLEAR YELLOW URINE. SKIN TO BLE IS PURPLISH AGUILA BUT MUCH IMPROVED FROM PREVIOUS DAYS. IV TO LEFT UPPER ARM IS PATNET WITHOUT REDNESS AT INSERTION SITE. DENIES NEEDS.
--- NOTE | 2016-11-06 10:40 | NUR ---
PATIENT IS AWAKE, ALERT AND ORIENTED X'S 4. NO SIGNS OF DISTRESS NOTED. PATIENT DENIES NEEDS. FAMILY MEMBERS IN ROOM AT BEDSIDE. VENOUS ACCESS NURSE LEAVING ROOM AFTER SUCCESSFULLY GETTING BLOOD DRAW. BED IN LOWEST POSITION, CALL LIGHT IN REACH. BED RAILS UP X'S 2.
[2016-11-06 10:49] LABS: BASOPHILS 0.1 % (0.0-2.0); EOSINOPHILS 1.3 % (0-7); HEMATOCRIT 31.3 % (36.0-48.0); HEMOGLOBIN 10.1 g/dL (12-16); IMMATURE GRANULOCYTES 0.2 % (0-5); LYMPHOCYTES 10.8 % (15-50); MCH 28.8 pg (26.0-34.0); MCHC 32.3 g/dL (31.0-37.0); MCV 89.2 fL (80.0-100.0); MEAN PLATELET VOLUME 10.2 fL (7.4-10.4); MONOCYTES 7.9 % (2-11); NEUTROPHILS 79.7 % (40-80); PLATELET COUNT 275 10x3/uL (130-400); RBC 3.51 10x6/uL (4.00-5.40); RDW 14.9 % (11.5-14.5); WBC 12.6 10x3/uL (4.8-10.8)
[2016-11-06 11:22] LABS: ALBUMIN 2.4 g/dL (3.4-5.0); ANION GAP 10.1 mmol/L (8-16); BILIRUBIN - TOTAL 0.82 mg/dL (0.2-1.3); CALCIUM 9.3 mg/dL (8.5-10.1); CARBON DIOXIDE 34.4 mmol/L (21.0-32.0); CREATININE - SERUM 2.8 mg/dL (0.6-1.3); POTASSIUM - SERUM 3.5 mmol/L (3.5-5.1); PROTEIN - SERUM 7.2 g/dL (6.4-8.2)
[2016-11-06 11:36] LABS: INR 5.98 (0.85-1.17); PROTIME 54.5 SECONDS (11.6-15.0)
[2016-11-06 12:30] VITALS: BP 151/51
--- NOTE | 2016-11-06 14:57 | NUR ---
NUTRITION MONITORING & EVAL CHART REVIEWED. PT VISIT. ADA DIET. 25% INTAKE PAST TWO MEALS. WILL CONTINUE TO PROVIDE DIET, ENCOURAGE PO INTAKE. RD FOLLOWING
--- NOTE | 2016-11-06 15:18 | NUR ---
ADMINISTERED VITAMIN K PO. PATIENT VOMITED A FEW MINS LATER. ADMINISTERED ZOFRAN 4MG IV. CLEANED PATIENT'S FACE AND HANDS WITH A COOL WASH CLOTH. EMPTIED BASIN BAG. PATIENT DENIES FURTHER NEEDS AT THIS TIME.
[2016-11-06 15:42] LABS: AMYLASE - SERUM 30 U/L (25-115); LIPASE 51 U/L (73-393)
[2016-11-06 16:36] VITALS: BP 131/48
[2016-11-06 20:00] VITALS: BP 161/54
--- NOTE | 2016-11-06 21:30 | NUR ---
PATIENT RESTING IN BED WITH EYES CLOSED NO SIGNS OF DISTRESS NOTED AT THIS TIME. SCHEDULED MEDS GIVEN. ASSESSMENT COMPLETED. DENIES ANY NEEDS AT THIS TIME. BED LOW. CALL LIGHT IN REACH
--- NOTE | 2016-11-07 02:00 | NUR ---
PT IN BED WITH NO DISTRESS. RESPIRATIONS EVEN AND UNLABORED. SIDE RAILS X 2. BED LOW. CALL LIGHT IN REACH.
[2016-11-07 06:16] LABS: BASOPHILS 0.1 % (0.0-2.0); EOSINOPHILS 1.1 % (0-7); IMMATURE GRANULOCYTES 0.2 % (0-5); LYMPHOCYTES 9.6 % (15-50); MCHC 32.3 g/dL (31.0-37.0); MCV 89.9 fL (80.0-100.0); MEAN PLATELET VOLUME 9.9 fL (7.4-10.4); PLATELET COUNT 286 10x3/uL (130-400); RBC 3.45 10x6/uL (4.00-5.40); WBC 10.3 10x3/uL (4.8-10.8)
[2016-11-07 06:48] LABS: ALBUMIN 2.2 g/dL (3.4-5.0); ANION GAP 10.7 mmol/L (8-16); BILIRUBIN - TOTAL 0.8 mg/dL (0.2-1.3); CARBON DIOXIDE 31.9 mmol/L (21.0-32.0); CREATININE - SERUM 2.9 mg/dL (0.6-1.3); POTASSIUM - SERUM 3.6 mmol/L (3.5-5.1); PROTEIN - SERUM 6.8 g/dL (6.4-8.2)
[2016-11-07 06:53] LABS: INR 2.6 (0.85-1.17)
[2016-11-07 08:40] VITALS: BP 118/63
[2016-11-07 13:31] VITALS: BP 137/58
[2016-11-07 17:19] VITALS: BP 137/55
--- NOTE | 2016-11-07 19:00 | NUR ---
BEDSIDE REPORT RECEIVED AND CARE OF PT ASSUMED. PT LYING IN SUPINE POSITION VISITING WITH FAMILY MEMBERS. IV IN LEFT AC SALINE LOCKED. TELEMETRY IN USE AND READING SR AT THIS TIME. WILL MONITOR CLOSELY FOR NEEDS.
--- NOTE | 2016-11-07 21:00 | NUR ---
HS MEDICATIONS GIVEN. FSBS 179 THIS CHECK, REQUIRING COVERAGE WITH 8 UNITS OF HUMALOG PER SLIDING SCALE. HS SNACK GIVEN. WILL CONTINUE TO MONITOR FOR NEEDS.
[2016-11-07 21:35] VITALS: BP 136/42
--- NOTE | 2016-11-07 23:20 | NUR ---
PT VOMITING...APPROX 100 ML EMESIS WITH FOOD PARTICLES. GAVE ZOFRAN 4 MG IVP PER PRN ORDER. WILL MONITOR FOR EFFECTIVENESS.
--- NOTE | 2016-11-08 01:00 | NUR ---
PT RESTING QUIETLY AT THIS TIME WITH NO MORE EPISODES OF VOMITING REPORTED. SIDE RAILS UP X2 FOR SAFETY.
[2016-11-08 06:06] LABS: BASOPHILS 0.1 % (0.0-2.0); EOSINOPHILS 1.6 % (0-7); HEMATOCRIT 29.6 % (36.0-48.0); HEMOGLOBIN 9.5 g/dL (12-16); IMMATURE GRANULOCYTES 0.2 % (0-5); LYMPHOCYTES 14.8 % (15-50); MCH 28.8 pg (26.0-34.0); MCHC 32.1 g/dL (31.0-37.0); MCV 89.7 fL (80.0-100.0); MEAN PLATELET VOLUME 9.9 fL (7.4-10.4); MONOCYTES 10.1 % (2-11); NEUTROPHILS 73.2 % (40-80); PLATELET COUNT 275 10x3/uL (130-400); RDW 14.9 % (11.5-14.5); WBC 9.1 10x3/uL (4.8-10.8)
[2016-11-08 06:21] LABS: INR 1.43 (0.85-1.17); PROTIME 17.4 SECONDS (11.6-15.0)
[2016-11-08 06:30] LABS: ALBUMIN 2.2 g/dL (3.4-5.0); ANION GAP 10.9 mmol/L (8-16); BILIRUBIN - TOTAL 0.8 mg/dL (0.2-1.3); CARBON DIOXIDE 32.5 mmol/L (21.0-32.0); CREATININE - SERUM 2.7 mg/dL (0.6-1.3); POTASSIUM - SERUM 3.4 mmol/L (3.5-5.1); PROTEIN - SERUM 6.6 g/dL (6.4-8.2)
--- NOTE | 2016-11-08 07:49 | NUR ---
PATIENT IS RESTING QUIETLY WITH EYES CLOSED. NO SIGNS OF DISTRESS NOTED. PATIENT IS RECIEVING OXYGEN VIA NASAL CANNULA AT 4L/MIN. BED IN LOWEST POSITION, CALL LIGHT IN REACH. BED RAILS UP X'S 2.
[2016-11-08 08:41] VITALS: BP 112/55
[2016-11-08 11:42] VITALS: BP 119/55
--- NOTE | 2016-11-08 13:59 | NUR ---
SPOKE WITH BRAYDON, FROM [facility]LE[facility]. SHE ASKED IF WANTS AN EF WITH THE PIPEDA SCAN. SHE SAID SHE WILL PLAN TO DO THE PIPEDA SCAN AT 0930 IN THE MORNING. IS NOT HERE ON THE FLOOR. SPOKE WITH JULIA, SHE SAID SHE WILL ASK .
[2016-11-08 15:34] VITALS: BP 110/52
--- NOTE | 2016-11-08 16:43 | NUR ---
Rehab Note- The patient has a surgery consult and a PIPIDA scan ordered at this time. Have spoken with the patient concerning acute rehab when medically stable. Will continue to follow the patient at this time. Britt Adams RN Clinical Liaison, [facility]
[2016-11-08 21:54] VITALS: BP 142/52
[2016-11-09] VITALS (13 sets, daily range): BP systolic 109–137; BP diastolic 35–68
--- NOTE | 2016-11-09 00:05 | NUR ---
ASSESSED AT THE BEGINNING OF THE SHIFT. PT IS ALERT AND ORIENTED, ABLE TO VERBALIZE NEEDS. SHE HAS O2 AT 24 LITERS AND TELEMETRY IN PLACE. BOTH OF HER LOVER LEGS ARE EDEMATOUS AND A VERY BLUE/FAJARDO COLOR. SHE IS TO BE PLACED NPO FOR SURGERY IN THE AM. SHE HAS BEEN ABLE TO TAKE ALL HER HS MEDS BUT REFUSED TO TAKE MAG CITRATE. SHE HAS A BHATIA FOR VOIDING AND HER MIDLINE IV SITE IS SALINE LOCKED. THE BED IS LOW, RAILS UP X'S 2 WITH THE CALL LIGHT AT HAND.
[2016-11-09 06:12] LABS: BASOPHILS 0.1 % (0.0-2.0); EOSINOPHILS 1.2 % (0-7); HEMATOCRIT 30.3 % (36.0-48.0); HEMOGLOBIN 9.7 g/dL (12-16); IMMATURE GRANULOCYTES 0.3 % (0-5); MCH 28.5 pg (26.0-34.0); MCV 89.1 fL (80.0-100.0); MEAN PLATELET VOLUME 9.9 fL (7.4-10.4); MONOCYTES 9.2 % (2-11); NEUTROPHILS 73.2 % (40-80); PLATELET COUNT 294 10x3/uL (130-400); RDW 15.1 % (11.5-14.5); WBC 10.4 10x3/uL (4.8-10.8)
[2016-11-09 06:20] LABS: INR 1.25 (0.85-1.17); PROTIME 15.6 SECONDS (11.6-15.0)
[2016-11-09 06:36] LABS: ALBUMIN 2.5 g/dL (3.4-5.0); BILIRUBIN - TOTAL 0.8 mg/dL (0.2-1.3); CALCIUM 8.9 mg/dL (8.5-10.1); CARBON DIOXIDE 31.9 mmol/L (21.0-32.0); CREATININE - SERUM 2.7 mg/dL (0.6-1.3); POTASSIUM - SERUM 3.9 mmol/L (3.5-5.1); PROTEIN - SERUM 6.4 g/dL (6.4-8.2)
--- NOTE | 2016-11-09 11:02 | NUR ---
RESTING QUIETLY IN BED. REQUESTED HER FSBS BE CHECKED. RESULT 161. NO ACTION TAKEN.
--- NOTE | 2016-11-09 11:30 | NUR ---
OFF UNIT VIA BED FOR PROCEDURE.
--- NOTE | 2016-11-09 13:00 | NUR ---
RETURNED FROM PROCEDURE. A/O X3. NO C/O AT THIS TIME. DENIES NEEDS.
--- NOTE | 2016-11-09 13:47 | NUR ---
FSBS 156. REFUSED 8 UNITS HUMALOG BUT AGREED TO TAKE 4 UNITS SUBQ. WILL MONITOR.
--- NOTE | 2016-11-09 16:20 | NUR ---
BILIARY DRAIN EMPTIED WITH 200CC VERY DARK FLUID. VSS. NO CHANGES NOTED.
--- NOTE | 2016-11-09 18:54 | NUR ---
REQUESTED AND GIVEN CRACKERS AND PB FOR SUPPER. REPORTS NO NAUSEA AT ALL AT THIS TIME. BILIARY DRAIN EMPTIED OF 80CC DARK THICK FLUID. NO CHANGES NOTED. DENIES NEEDS.
--- NOTE | 2016-11-09 23:07 | NUR ---
ASSESSED AT THE BEGINNING OF THE SHIFT. PT IS ALERT AND ABLE TO VERBALIZE NEEDS. SHE HAD A NEW BILIARY DRAIN PLACE TO HER RIGHT SIDE TODAY AND IT IS WORKING WELL. WE FLUSHED IT AT BEDTIME. WITH NO RESISTANCE. SHE STILL HAS HER BHATIA CATH ORDERED AND HAS HER TELEMETRY IN PLACE SHOWING SINUS RHYTHM. O2 IS AT 2 LITERS AND SHE RECEIVED ZOFRAN ORDERED FOR NAUSEA AND VOMITING. HER HS MEDS AT AT THE BEDSIDE AND SHE STATED SHE WOULD TRY TO TAKE THEM LATER. THE BLOOD SUGAR WAS TAKEN AND SHE REFUSED ANY S/S DUE TO THE NAUSEA. SHE DID GET HER LANTUS. THE BED IS LOW, RAILS UP X'S 2 WITH THE CALL LIGHT AT HAND.
[2016-11-10 04:00] VITALS: BP 137/54
[2016-11-10 07:26] LABS: BASOPHILS 0.1 % (0.0-2.0); EOSINOPHILS 0.6 % (0-7); HEMATOCRIT 30.9 % (36.0-48.0); HEMOGLOBIN 9.7 g/dL (12-16); IMMATURE GRANULOCYTES 0.2 % (0-5); LYMPHOCYTES 7.7 % (15-50); MCH 28.3 pg (26.0-34.0); MCHC 31.4 g/dL (31.0-37.0); MCV 90.1 fL (80.0-100.0); MEAN PLATELET VOLUME 9.7 fL (7.4-10.4); MONOCYTES 6.8 % (2-11); NEUTROPHILS 84.6 % (40-80); PLATELET COUNT 281 10x3/uL (130-400); RBC 3.43 10x6/uL (4.00-5.40); WBC 11.7 10x3/uL (4.8-10.8)
[2016-11-10 07:33] LABS: INR 1.33 (0.85-1.17); PROTIME 16.4 SECONDS (11.6-15.0)
[2016-11-10 07:47] LABS: ALBUMIN 2.4 g/dL (3.4-5.0); ANION GAP 10.3 mmol/L (8-16); BILIRUBIN - TOTAL 0.7 mg/dL (0.2-1.3); CALCIUM 9.2 mg/dL (8.5-10.1); CARBON DIOXIDE 32.7 mmol/L (21.0-32.0); CREATININE - SERUM 2.8 mg/dL (0.6-1.3); PROTEIN - SERUM 7.1 g/dL (6.4-8.2)
--- NOTE | 2016-11-10 08:26 | NUR ---
AWAKE AND ALERT. ORIENTED X3. NO C/O AT THIS TIME. BREAKFAST SERVED IN ROOM. LUNGS ARE CLEAR BILATERALLY, NO COUGH NOTED. SKIN IS INTACT WITHOUT REDNESS BUT PURPLISH AGUILA DISCOLORATION NOTED TO BLE. THIS IS NOT NEW. LEFT UPPER ARM MIDLINE PATENT WITHOUT REDNESS AT INSERTION SITE. BILIARY BAG PATENT WITH DARK GREENINSH DISCHARGE. DENIES NEEDS.
--- NOTE | 2016-11-10 08:29 | NUR ---
BHATIA PATENT WITH CLEAR YELLOW URINE.
[2016-11-10 08:57] VITALS: BP 119/44
--- NOTE | 2016-11-10 10:34 | NUR ---
SITTING UP IN CHIAR AT BEDSIDE PER PT. FAMILY IN ROOM. DENIES NEEDS.
--- NOTE | 2016-11-10 11:30 | NUR ---
FSBS 166. WILL COVER. REQUESTED AND GIVEN 4MG ZOFRAN SLOW IVP TO PREVENT NAUSEA WITH LUNCH. WILL MONITOR.
[2016-11-10 12:24] VITALS: BP 146/54
--- NOTE | 2016-11-10 13:17 | NUR ---
ATE MOST OF LUNCH. NO C/O NAUSEA OR PAIN AT THIS TIME. WILL CONTINUE TO MONITOR.
--- NOTE | 2016-11-10 15:55 | NUR ---
RESTING QUIETLY WITH EYES CLOSED. NO NEEDS NOTED.
[2016-11-10 16:02] VITALS: BP 140/67
--- NOTE | 2016-11-10 18:39 | NUR ---
FSBS BEFORE MEAL 166. GIVEN 8 UNITS HUMALOG SUB Q PER SS. ATE OVER HALF OF SUPPER TRAY. NO C/O NAUSEA OR PAIN AFTER EATING.
[2016-11-10 20:00] VITALS: BP 154/67
[2016-11-11] VITALS: BP 139/62
--- NOTE | 2016-11-11 01:16 | NUR ---
ASSESSED AT THE BEGINNING OF THE SHIFT. PT IS ALERT AND ORIENTED, ABLE TO VERBALIZE NEEDS. SHE IS STILL WEARING TELEMETRY AND HAS O2 IN PLACE. RESPIRATIONS ARE EASY UNTIL SHE HAS TO EXERT ENERGY. HER BILIARY DRAIN LOOKS GOOD AND SHE STIL HAS HER BHATIA CATH IN PLACE. THE BED IS LOW, RAILS UP X'S 2 WITH THE CALL LIGHT AT HAND.
[2016-11-11 04:00] VITALS: BP 146/79
[2016-11-11 06:06] LABS: BASOPHILS 0.1 % (0.0-2.0); EOSINOPHILS 0.6 % (0-7); HEMATOCRIT 31.3 % (36.0-48.0); IMMATURE GRANULOCYTES 0.4 % (0-5); LYMPHOCYTES 9.6 % (15-50); MCH 28.8 pg (26.0-34.0); MCHC 31.9 g/dL (31.0-37.0); MCV 90.2 fL (80.0-100.0); MEAN PLATELET VOLUME 9.8 fL (7.4-10.4); MONOCYTES 6.2 % (2-11); NEUTROPHILS 83.1 % (40-80); PLATELET COUNT 329 10x3/uL (130-400); RBC 3.47 10x6/uL (4.00-5.40); RDW 15.1 % (11.5-14.5); WBC 13.9 10x3/uL (4.8-10.8)
[2016-11-11 06:27] LABS: INR 1.32 (0.85-1.17); PROTIME 16.3 SECONDS (11.6-15.0)
[2016-11-11 06:47] LABS: ALBUMIN 2.4 g/dL (3.4-5.0); ANION GAP 16.3 mmol/L (8-16); BILIRUBIN - TOTAL 0.7 mg/dL (0.2-1.3); CARBON DIOXIDE 25.6 mmol/L (21.0-32.0); CREATININE - SERUM 2.8 mg/dL (0.6-1.3); POTASSIUM - SERUM 3.9 mmol/L (3.5-5.1); PROTEIN - SERUM 7.2 g/dL (6.4-8.2)
[2016-11-11 07:53] VITALS: BP 132/50
--- NOTE | 2016-11-11 07:56 | NUR ---
AWAKE AND ALERT. FAMILY AT BEDSIDE. DENIES NEEDS. LUNGS ARE CLEAR BILATERALLY, NO COUGH NOTED. SKIN IS INTACT WITHOUT REDNESS EXCEPT SOME EDEMA NOTED TO BILATERAL ARMS. DOPPLER STUDY WAS NEGATIVE ON LEFT. LEFT UPPER ARM MIDLINE PATENT WITHOUT REDNESS AT INSERTION SITE. BHATIA PATENT WITH CLEAR YELLOW URINE. BILIARY DRAIN IN PLACE TO RIGHT SIDE WITH DARK GREENISH THICK DRAINAGE. REPORTS EPISODE OF EMESIS THIS AM BUT NO NAUSEA AT THIS TIME.
--- NOTE | 2016-11-11 10:31 | NUR ---
RESTING QUIETLY. DENIES NEEDS.
[2016-11-11 11:10] VITALS: BP 128/64
--- NOTE | 2016-11-11 12:30 | NUR ---
FSBS 222. GIVEN 12 UNITS HUMALOG SUBQ PER SS. LUNCH SERVED IN ROOM.
[2016-11-11 15:56] VITALS: BP 135/44
--- NOTE | 2016-11-11 17:05 | NUR ---
REQUESTED AND GIVEN 0.1 MG BUPRENEX SLOW IVP FOR C/O GENERALIZED PAIN. WILL MONITOR.
--- NOTE | 2016-11-11 18:39 | NUR ---
ATE A FEW BITES OF SUPPER. REPORTS SOME RELIEF WITH USE OF BUPRENEX. NO CHANGES NOTED.
[2016-11-11 19:00] VITALS: BP 106/42
[2016-11-12] VITALS: BP 127/55
--- NOTE | 2016-11-12 02:29 | NUR ---
REC'D PATIENT LYING SEMI FOWLERS IN BED. ALERT AND ORIENTED X4. DENIES PAIN @ THIS TIME. MUCUS MEMBRANES PINK AND MOIST. BOWELS ACTIVE X4. BILLAIRY DRAIN TO RUQ, BROWN LIQUID DRAINING. BHATIA CATH, URINE STRAW-COLORED, CLEAR, DRAINING TO GRAVITY. FULL ROM IN UPPER AND LOWER EXTEMITIES, HAS WEAKNESS IN UPPER AND LOWER EXTREMITIES. HAS LEFT UPPER MIDLINE IN ARM, PATENT. CAP REFILL <3SECS. DENIED HEARING AND VISION PROBLEMS. INSTRUCTED TO CALL IF NEEDED ANYTHING PATIENT VERBALIZED UNDERSTANDING.
--- NOTE | 2016-11-12 02:33 | NUR ---
PATIENT HAD ME TO CLEAN DENTURES, WHILE IN THE ROOM PATIENT VOMITED. ALSO WAS DIRTY. YORDAN, PARVEZ AND I CLEANED HER UP AND CHANGED HER LINENS OUT. DENIED ANY FURTHER NEEDS @ THIS TIME. INSTUCTED TO CALL IF NEEDED ANYTHING, PATIENT VERBALIZED UNDERSTANING. BED LOW, LOCKED, CALL LIGHT IN REACH, BED ALARM ON.
--- NOTE | 2016-11-12 03:14 | NUR ---
EYES CLOSED RESPIRATIONS WITH EASE AND UNLABORED.
[2016-11-12 06:23] LABS: BASOPHILS 0.2 % (0.0-2.0); EOSINOPHILS 1.4 % (0-7); HEMATOCRIT 28.9 % (36.0-48.0); HEMOGLOBIN 9.1 g/dL (12-16); IMMATURE GRANULOCYTES 0.5 % (0-5); LYMPHOCYTES 9.2 % (15-50); MCH 28.3 pg (26.0-34.0); MCHC 31.5 g/dL (31.0-37.0); MCV 89.8 fL (80.0-100.0); MEAN PLATELET VOLUME 9.6 fL (7.4-10.4); MONOCYTES 5.7 % (2-11); PLATELET COUNT 290 10x3/uL (130-400); RBC 3.22 10x6/uL (4.00-5.40); RDW 15.1 % (11.5-14.5); WBC 13.2 10x3/uL (4.8-10.8)
[2016-11-12 06:38] LABS: ALBUMIN 2.3 g/dL (3.4-5.0); ANION GAP 13.8 mmol/L (8-16); BILIRUBIN - TOTAL 0.6 mg/dL (0.2-1.3); CARBON DIOXIDE 26.2 mmol/L (21.0-32.0); CREATININE - SERUM 3.2 mg/dL (0.6-1.3); PROTEIN - SERUM 6.7 g/dL (6.4-8.2)
--- NOTE | 2016-11-12 07:20 | NUR ---
SLEEPING, EASILY AROUSED, COMPLAINTS OF NASUEA, BED LOWEST POSIITON, CALL LIGHT IN REACH, NO OTHER COMPLAINTS, ZOFRAN FOR NAUSEA GIVEN
--- NOTE | 2016-11-12 07:41 | NUR ---
PATIENT IS RESTING QUIETLY WITH EYES CLOSED. NO SIGNS OF DISTRESS NOTED. BED IN LOWEST POSITION, CALL LIGHT IN REACH. BED RAILS UP X'S 2.
[2016-11-12 08:14] VITALS: BP 153/75
[2016-11-12 12:07] VITALS: BP 129/52
[2016-11-12 12:39] LABS: INR 1.44 (0.85-1.17); PROTIME 17.5 SECONDS (11.6-15.0)
[2016-11-12 15:29] VITALS: BP 119/59
[2016-11-13] VITALS: BP 129/55
--- NOTE | 2016-11-13 00:30 | NUR ---
REC'D PATIENT LYING SEMI FOWLERS IN BED. ALERT AND ORIENTED X4. DENIES PAIN AT THIS TIME. RESPIRATIONS EVEN AND UNLABORED AT THE TIME. BOWELS ACTIVE X4. HAS BHATIA, STRAW-COLORED URINE, DRAINING TO GRAVITY. FLUSHED BILLIARY DRAIN. DENIES ANY FURTHER NEEDS AT THIS TIME. INTRUCTED TO CALL IF NEEDED ANYTHING, VERBALIZED UNDERSTANDING.
[2016-11-13 04:00] VITALS: BP 130/51
--- NOTE | 2016-11-13 04:33 | NUR ---
PATIENT IS RESTING IN BED COMFORTALBLY. DENIES NEEDS AT THIS TIME. INSTRUCTED TO CALL IF NEEDED ANYTHING. VERBALIZED UNDERSTANDING. BED LOW, LOCKED, CALL LIGHT IN REACH, ALARM ON.
[2016-11-13 05:10] LABS: BASOPHILS 0.1 % (0.0-2.0); EOSINOPHILS 1.5 % (0-7); HEMATOCRIT 30.5 % (36.0-48.0); HEMOGLOBIN 9.5 g/dL (12-16); IMMATURE GRANULOCYTES 0.5 % (0-5); LYMPHOCYTES 8.5 % (15-50); MCH 28.2 pg (26.0-34.0); MCHC 31.1 g/dL (31.0-37.0); MCV 90.5 fL (80.0-100.0); MEAN PLATELET VOLUME 10.1 fL (7.4-10.4); MONOCYTES 5.1 % (2-11); NEUTROPHILS 84.3 % (40-80); PLATELET COUNT 340 10x3/uL (130-400); RBC 3.37 10x6/uL (4.00-5.40); RDW 15.3 % (11.5-14.5)
[2016-11-13 05:22] LABS: INR 1.53 (0.85-1.17); PROTIME 18.3 SECONDS (11.6-15.0)
[2016-11-13 05:26] LABS: ANION GAP 17.4 mmol/L (8-16); CALCIUM 8.9 mg/dL (8.5-10.1); CARBON DIOXIDE 25.6 mmol/L (21.0-32.0); CREATININE - SERUM 3.2 mg/dL (0.6-1.3)
[2016-11-13 07:58] VITALS: BP 128/60
--- NOTE | 2016-11-13 08:00 | NUR ---
PT IS RESTING IN BED WITH EYES OPEN. ALERT AND ORIENTED X 3. VOICES COMPLAINT OF GENERAL MALAIS. STATES IM NAUSEATED ALL THE TIME. THE IV MEDICINE HELPS, BUT DOES NOT RELIEVE IN COMPLETELY. IV INFUSING TO LFA WITHOUT DIFFICULTY. NO REDNESS OR EDEMA NOTED AT THE INSERTION SITE. O2 IS ON @ 2LPM PER NC. BILI DRAIN NOTED TO RIGHT ABD. BHATIA CATH PATENT AND DRAINING TO A GRAVITY BAG. SR'S ARE UP X 2 IN BED. CALL LIGHT AND BEDSIDE TABLE ARE WITHIN EASY REACH.
--- NOTE | 2016-11-13 11:24 | NUR ---
PATIENT RECIEVED 12 UNITS OF INSULIN AT THIS TIME BY WOOD SETTER. NO COMPLAINTS OR PROBLEMS. FAMILY AT BEDSIDE. CALL LIGHT WITHIN REACH.
[2016-11-13 11:45] VITALS: BP 133/54
--- NOTE | 2016-11-13 13:01 | NUR ---
PT RESTING IN BED, DOZING ON AND OFF. AWAKENS EASILY TO VERBAL STIMULI. NO ACUTE DISTRESS NOTED. PT DENIES ANY NEEDS AT THIS TIME.
[2016-11-13 15:16] VITALS: BP 141/45
--- NOTE | 2016-11-13 15:16 | NUR ---
11/13/2016 15:14 DCP: Discharge Planning Hospice consult order rec'd - Dr. Mancera has spoke with patient & family. They would like to talk with scheduling representative for [facility]. Referral called to Kip with [facility]. CM will follow.
--- NOTE | 2016-11-13 15:27 | NUR ---
NUTRITION MONITORING & EVAL CHART REVIEWED. PT CURRENTLY VISITING WITH HOSPICE REP. ADA DIET WITH CONTINUED POOR PO INTAKE. WILL PROVIDE CURRENT DIET, MONITOR PT PROGRESS. RD FOLLOWING
--- NOTE | 2016-11-13 15:34 | NUR ---
PT IS IN HER ROOM WITH 2 FAMILY MEMBERS AND A WAREHOUSE RECEIVING SUPERVISOR DISCUSSING POSSIBLE ADMISSION TO HOSPICE AT THIS TIME.
--- NOTE | 2016-11-13 18:22 | NUR ---
PT RESTING IN BED WITH EYES OPEN. DENIES NEEDS AT THIS TIME. 2 FAMILY MEMBERS AT BEDSIDE. HOSPICE NURSE HERE TO EVAL PT.
[2016-11-13 20:00] VITALS: BP 102/71
--- NOTE | 2016-11-13 20:59 | NUR ---
RECIEVED ON WALKING ROUNDS AWAKE AND ALERT FAMILY AT BEDSIDE. REQUESTING TO HAVE VALIUM AND TYLENOL PM FOR SLEEP IT IS HER HOME MED. STATED THAT DR BARROS HO HER SHE COULD HAVE IT BUT NO ORDER S FOUND WILL CLARIFY WITH MD.
[2016-11-14] VITALS: BP 114/53
--- NOTE | 2016-11-14 02:31 | NUR ---
RECIEVED ORDER FOR DIAZEPAM EARLIER PT REQUESTING AT THIS TIME. AWAITING BARREL ASSEMBLY INSPECTOR TO PULL MED PHARMACY WAS ALREADY GONE TO GET FROM [facility].
[2016-11-14 04:00] VITALS: BP 123/57
[2016-11-14 04:36] LABS: APPEARANCE CLEAR (CLEAR); BILIRUBIN NEGATIVE (NEGATIVE); COLOR YELLOW (YELLOW); GLUCOSE NEGATIVE (NEGATIVE); KETONE NEGATIVE (NEGATIVE); LEUKOCYTE ESTERASE NEGATIVE (NEGATIVE); NITRITE NEGATIVE (NEGATIVE); PROTEIN 2+ mg/dL (NEGATIVE); UROBILINOGEN NORMAL (NORMAL)
[2016-11-14 04:50] LABS: AMORPHOUS SEDIMENT <1+ /lpf (NONE SEEN); BACTERIA FEW /hpf (NONE SEEN); EPITHELIAL CELLS RARE /hpf (0-5); WHITE CELLS - URINE 0-5 /hpf (0-5); YEAST >1+ /hpf (NONE SEEN)
[2016-11-14 06:41] LABS: BASOPHILS 0.1 % (0.0-2.0); EOSINOPHILS 2.1 % (0-7); HEMATOCRIT 30.5 % (36.0-48.0); HEMOGLOBIN 9.5 g/dL (12-16); IMMATURE GRANULOCYTES 0.5 % (0-5); LYMPHOCYTES 6.5 % (15-50); MCH 27.9 pg (26.0-34.0); MCHC 31.1 g/dL (31.0-37.0); MCV 89.7 fL (80.0-100.0); MEAN PLATELET VOLUME 9.5 fL (7.4-10.4); MONOCYTES 6.8 % (2-11); PLATELET COUNT 322 10x3/uL (130-400); RDW 15.6 % (11.5-14.5); WBC 15.1 10x3/uL (4.8-10.8)
[2016-11-14 06:58] LABS: PROTIME 21.5 SECONDS (11.6-15.0)
[2016-11-14 07:00] LABS: ALBUMIN 2.3 g/dL (3.4-5.0); ANION GAP 14.2 mmol/L (8-16); BILIRUBIN - TOTAL 0.6 mg/dL (0.2-1.3); CALCIUM 8.9 mg/dL (8.5-10.1); CARBON DIOXIDE 24.7 mmol/L (21.0-32.0); CREATININE - SERUM 3.6 mg/dL (0.6-1.3); POTASSIUM - SERUM 3.9 mmol/L (3.5-5.1); PROTEIN - SERUM 6.9 g/dL (6.4-8.2); VANCOMYCIN - RANDOM 20.1 ug/mL (10.0-20.0)
[2016-11-14 07:05] LABS: INR 1.86 (0.85-1.17)
--- NOTE | 2016-11-14 08:00 | NUR ---
SLEEPING IN BED, EASILY AROUSED, DENIES NEEDS, CALL LIGHT IN REACH, BED LOWEST POSITION, WILL CONTINUE TO MONITOR
[2016-11-14 08:26] VITALS: BP 116/51
[2016-11-14 12:18] VITALS: BP 128/58
[2016-11-14 13:38] LABS: ERYTHROCYTE SEDIMENTATION RATE 58 mm/hr (0-30)
--- NOTE | 2016-11-14 16:02 | NUR ---
11/14/2016 16:00 DCP: Discharge Planning Patient & family have decided on inpatient hospice - Notified Kip with [facility]. Patient is [facility] appropriate & will be admitted today. CM will follow.
[2016-11-14 16:29] VITALS: BP 137/61
--- NOTE | 2016-11-14 17:42 | NUR ---
SLEEPING QUIETLY AT PRESENT RESP EVEN AND UNLABORED AT PRESENT.
[2016-11-15 18:11] LABS: SPE - A/G RATIO 0.7 (0.7-1.7); SPE - ALBUMIN 2.6 g/dL (2.9-4.4); SPE - ALPHA-1 GLOBULIN 0.5 g/dL (0.0-0.4); SPE - GAMMA GLOBULIN 1.2 g/dL (0.4-1.8); SPE - M-SPIKE Not Observed g/dL (Not Observed); SPE - TOTAL PROTEIN 6.2 g/dL (6.0-8.5)
[2016-11-18 16:09] LABS: AEROBE ID Final report (()); RESULT 1 Enterococcus avium (())
--- NOTE | 2016-11-20 14:37 | EC ---
PATIENT:JARET CASTILLO DATE OF SERVICE: 10/29/16 SEX: F MEDICAL RECORD: [id number] DATE OF : 36 LOCATION:[facility] AGE OF PATIENT: 76 ADMISSION DATE: 10/29/16 REFERRING PHYSICIAN: INTERPRETING PHYSICIAN: JESSICA COUGHLIN MD ECHOCARDIOGRAM REPORT ECHO CHARGES 4 ECHO COMPLETE CLINICAL DIAGNOSIS: CHF ECHOCARDIOGRAPHIC MEASUREMENTS (adult normal given) AC root (d.<3.7cm) 2.6 LV Septum d (<1.2 cm> 1.6 Valve Excursion 0.7 LV Septum (systole) 2.3 Left Atria (s.<4.0cm> 5.1 LVPW d(<1.2cm) 1.5 RV (d.<2.3cm) 3.0 LVPW (sytole) 2.2 LV diastole(<5.6CM) 5.1 MV E-F(>70mm/sec) LV systole 3.0 LVOT Diameter 1.8 MV exc.(>10mm) Est.ejection fraction (50-75%) Pericardial Effusion N DOPPLER: LVIT A 74.0 E 180 LA RVSP 56.3 LVOT 94.0 AOP1/2T Asc. Ao 576 RVOT 102 RA PA 139 AV Gradient Peak 133.0 AV Mean 89.1 AV Area 0.4 MV Gradient Peak 14.4 MV Mean 4.0 MV Area COMMENTS: Makeup Instructor: Kaleigh MONTOYAOE Wireless Manager:1 Dr. Coughlin TAPE# PACS DATE OF SERVICE: 11/04/2016 Echocardiogram FINDINGS: 1. Left ventricular chamber size is within normal limits. Left ventricular systolic function is mildly depressed. Overall ejection fraction 40%. 2. Left atrium is enlarged at 5.1 cm. Right atrium and right ventricular chamber sizes are within normal limits. 3. 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 Valve area calculates to 0.4 cm-squared and there is gradient of 133 mm across the valve. The remaining valvular structures have normal structure and motion. 4. Doppler interrogation elsewise reveals moderate mitral regurgitation, moderate tricuspid regurgitation, no other valvular insufficiency or stenosis, pulmonary systolic pressure is elevated estimated at 56 mmHg. 5. No evidence of pericardial effusion or left ventricular thrombus. TRANSINT:[id number] Voice Confirmation ID: [id number] DOCUMENT ID: [id number] 11/07/2016 Edited to correct date of service, dmm. JESSICA COUGHLIN MD at 1437 CC: [id number] DICTATION DATE: 11/05/16 1043 INSTRUCTIONAL SUPPORT TECHNICIAN: 11/05/16 1444 DIS IN 11/14/16 [place] [id number] [place] [id number]
== END 2016-11-14 18:41 | disposition hospice, inpatient (51) | DRG 291 ==
LOC: D.ER 17:21 → D.MS 20:02
PROVIDERS: Emergency Medicine; Family Medicine; Internal Medicine Nephrology; Physician Assistant; Radiology Diagnostic Radiology; ADMIT Family Medicine Adult Medicine
PROC: 0F9430Z Drainage of Gallbladder with Drainage Device, Percutaneous Approach (ICD-10-PCS; principal; 2016-11-09 11:30)
DX: I13.0 Hypertensive heart and chronic kidney disease with heart failure and stage 1 through stage 4 chronic kidney disease, or unspecified chronic kidney disease (principal); I50.23 Acute on chronic systolic (congestive) heart failure; N17.9 Acute kidney failure, unspecified; Z68.41 Body mass index [BMI] 40.0-44.9, adult; N39.0 Urinary tract infection, site not specified; I35.0 Nonrheumatic aortic (valve) stenosis; E11.22 Type 2 diabetes mellitus with diabetic chronic kidney disease; E11.65 Type 2 diabetes mellitus with hyperglycemia; I48.0 Paroxysmal atrial fibrillation; Z79.01 Long term (current) use of anticoagulants; M1A.9XX0 Chronic gout, unspecified, without tophus (tophi); Z95.0 Presence of cardiac pacemaker; E03.9 Hypothyroidism, unspecified; E66.01 Morbid (severe) obesity due to excess calories; K81.9 Cholecystitis, unspecified; N18.3 Chronic kidney disease, stage 3 (moderate); B96.20 Unspecified Escherichia coli [E. coli] as the cause of diseases classified elsewhere; D63.8 Anemia in other chronic diseases classified elsewhere

== ENCOUNTER 2016-11-14 18:41 | Inpatient (IN) | payer OTHER ==
[~2016-11-14] VITALS: Ht 160 cm; Wt 113.6 kg
[~2016-11-14 18:41] MED LIST: ALPHAGAN P15 ML EACH EYE; CORDARONE200 MG PO; COUMADIN3 MG PO; FUROSEMIDE40 MG PO; HYDROCODONE-APA1 TAB PO; LANTUS INSULIN10 ML SC; LEVAQUIN250 MG PO; LEVOTHYROXINE50 MCG PO; LIPITOR80 MG PO; NOVOLOG100 U/M1 SC; OMEGA 3 FISH OI1 CAP PO; OMEPRAZOLE20 M1 PO; PROBIOTIC1 EAC1 PO; PROZAC20 MG PO; TYLENOL PM1 TAB PO; VALIUM 2 MG TAB2 MG PO; ZYLOPRIM100 MG PO
[2016-11-14 19:00] VITALS: BP 114/45
--- NOTE | 2016-11-14 23:45 | NUR ---
REC'D PATIENT LYING SEMI FOWLERS IN BED. WAS READMITTED TO HOSPICE TODAY. DID THE QUICK START AND THE ADMISSION HISTORY. RECONCILED THE MEDS WELL. ALSO DR. BAZAN PUT STATED TO CONTINUE HER ON CURRENT MEDS. COULDNT FIND THEM. WHEN INTO D/C HISTORY AND CONTINUED THE ONES THAT I WAS GOING TO NEED FOR THE NIGHT. WILL INFORM THE ONCOMING NURSE IN THE MORNING THAT OTHER MEDS NEED TO BE PUT IN AND VERIFIED BY THE DOCTOR. PATIENT IS ALERT AND ORIENTED X4. FAMILY IS IN THE ROOM. PATIENT DENIES PAIN @ THIS TIME. IS WANTING HER ATIVAN. ADMINSTERED PRESCRIBED. BOWELS SOUNDS ACTIVE X4. HAS BHATIA CATH. URINE IS STRAW-COLORED, CLEAR, AND DRAINING TO GRAVITY. FULL ROM IN ALL EXTREMITIES. HAS WEAKNESS IN ALL EXTREMITIES AND EDEMA. HAS A MIDLINE TO LEFT UPPER ARM, PATENT. DENIES ANY NEEDS AT THIS TIME. INSTRUCTED TO CALL IF NEEDED ANYTHING. VERBALIZED UNDERSTANDING. BED LOW, LOCKED, ALARM ON, CALL LIGHT IN REACH.
[2016-11-15 04:00] VITALS: BP 116/74
--- NOTE | 2016-11-15 05:20 | NUR ---
PATIENT IS RESTING COMFORTABLY IN BED. DENIED NEEDS AT THIS TIME. TOLD HER THAT HER MEDS WOULD CONTINUE IN THE MORNING DUE TO THE DOCTOR NEEDING TO VERIFY THE ORDERS. BED LOW, LOCKED, CALL LIGHT IN REACH, ALARM ON.
[2016-11-15 07:56] VITALS: BP 120/54
--- NOTE | 2016-11-15 08:23 | NUR ---
SLEEPING, EASILY AROUSED, DENIES NEEDS, CALL LIGHT IN REACH, BED LOWEST POSITION, BILIARY DRAIN DRAINING, WILL CONTINUE TO MONITOR
--- NOTE | 2016-11-15 09:28 | NUR ---
MIDLINE DRESSING CHANGED, CDI
--- NOTE | 2016-11-15 09:40 | NUR ---
PATIENT ALERT IN BED WITH NURSE PRESENT. NO SIGNS OF DISTRESS NOTED. SIDE RAILS UP X2. BED IN LOW POSITION. CALL LIGHT IN REACH.
[2016-11-15 12:14] VITALS: BP 116/50
[2016-11-15 15:42] VITALS: BP 135/50
--- NOTE | 2016-11-15 19:30 | NUR ---
PT RECEIVED SITTING UP IN BED WATCHING TELEVISION. PT ALERT AND ORIENTED X4. NO S/S OF DISTRESS NOTED. RESP EVEN AND UNLABORED. LUNG SOUNDS CLEAR BILATERALLY AT THIS TIME. SEE SHIFT ASSESSMENT. PT REQUESTS FOR PRN ATIVAN DOSE TO BE ADMINISTERED WITH 2100 MEDS. BILIARY DRAIN IN PLACE AND DRAINING. LEFT MIDLINE IN PLACE WITH ZOFRAN DRIP @ 4.7. DENIES PAIN AT THIS TIME. CALL LIGHT AND H2O IN PT REACH. BED IN LOW POSITION. SIDE RAILS UP X2.
[2016-11-15 20:00] VITALS: BP 132/58
--- NOTE | 2016-11-15 21:30 | NUR ---
PT RESTING IN BED WITH EYES CLOSED. NO S/S OF DISTRESS NOTED. RESP EVEN AND UNLABORED. CALL LIGHT AND H2O IN PT REACH. SIDE RAILS UP X2. BED IN LOW POSITION.
--- NOTE | 2016-11-15 23:30 | NUR ---
PT RESTING IN BED WITH EYES CLOSED. NO S/S OF DISTRESS NOTED. RESPIRATIONS EVEN AND UNLABORED. CALL LIGHT AND H2O IN PT REACH. BED IN LOW POSITION. SIDE RAILS UP X2.
--- NOTE | 2016-11-16 04:00 | NUR ---
PATIENT RESTING COMFORTABLY WITH NO DISTRESS NOTED. AGREE WITH HEEL SORTER ASSESSMENT.
[2016-11-16 07:40] VITALS: BP 147/54
--- NOTE | 2016-11-16 08:00 | NUR ---
SLEEPING, EASILY AROUSED, DENIES NEEDS, NO DISTRESS NOTED, ASSESSMENT COMPLETE, BED LOWEST POSITION, BILIARY DRAIN PATENT AND DRAINING, CALL LIGHT IN REACH, WILL CONTINUE TO MONITIOR
--- NOTE | 2016-11-16 08:27 | NUR ---
SLEEPING AT THIS TIME. OXYGEN ON 2L VIA NC. RESPIRATIONS EVEN, BUT SHALLOW. BHATIA CATHETER PATENT AND DRAINING DARK, CONCENTRATED URINE. CALL LIGHT IN REACH AND DOOR OPEN. WILL CONTINUE WITH COMFORT MEASURES.
--- NOTE | 2016-11-16 19:30 | NUR ---
PT RECEIVED RESTING IN BED WITH EYES CLOSED. PT ALERT AND ORIENTED X4. AROUSES TO VERBAL STIMULI. SEE SHIFT ASSESSMENT. DENIES PAIN OR NEEDS AT THIS TIME. BILIARY DRAIN IN PLACE WITH DARK BROWN RETURN NOTED. BHATIA IN PLACE, CLEAR MARIA ISABEL RETURN NOTED AT THIS TIME. MIDLINE TO LEFT UPPER ARM SALINE LOCKED AT THIS TIME, DRESSING CLEAN, DRY, AND INTACT, NO REDNESS OR EDEMA NOTED TO SITE. CALL LIGHT AND H2O IN PT REACH. SIDE RAILS UP X2. BED IN LOW POSITION.
[2016-11-16 20:00] VITALS: BP 136/58
--- NOTE | 2016-11-16 21:30 | NUR ---
PT RESTING IN BED WITH EYES CLOSED. NO S/S OF DISTRESS NOTED. RESP EVEN AND UNLABORED. PT ABLE TO VOICE NEEDS, NO COMPLAINTS OR NEEDS VOICED AT THIS TIME. CALL LIGHT AND H2O IN PT REACH. SIDE RAILS UP X2, BED IN LOW POSITION.
--- NOTE | 2016-11-16 23:30 | NUR ---
PT RESTING IN BED WITH EYES CLOSED. NO S/S OF DISTRESS NOTED AT THIS TIME. RESPIRATIONS EVEN AND UNLABORED. CALL LIGHT AND H2O IN PT REACH. BED IN LOW POSITION. SIDE RAILS UP X2.
--- NOTE | 2016-11-17 04:00 | NUR ---
PATIENT RESTING COMFORTABLY WITH NO DISTRESS NOTED. CALL LIGHT WITHIN REACH.
--- NOTE | 2016-11-17 07:54 | NUR ---
PATIENT RESTING WELL. NO S/S OF PAIN/DISCOMFORT. EXTEME EDEMA ALL EXTREMITIES. LOWER LEG BILATERAL BLACK. OXYGEN ON AT 2L PER N/C NO DISTRESS NOTED. BILARY DRAIN RIGHT UPPER ABDOMIN. PERIPHERAL LT UPPER ARM KVO AT 5CC/HR
[2016-11-17 08:38] VITALS: BP 126/45
--- NOTE | 2016-11-17 09:00 | NUR ---
BLOOD PRESSURE LOW 126/45. CORDARONE HELD
--- NOTE | 2016-11-17 09:20 | NUR ---
PRN ATIVAN GIVEN PER PATIENT REQUEST FOR ANXIETY
--- NOTE | 2016-11-17 14:59 | NUR ---
PATIENT IS RESTING QUIETLY WITH EYES CLOSED. FAMILY MEMBER IN ROOM, ALSO SLEEPING. BED IN LOWEST POSITION, CALL LIGHT IN REACH. BED RAILS UP X'S 2.
--- NOTE | 2016-11-17 15:10 | NUR ---
DAUGHTERS REMAIN AT BEDSIDE. PATIENT VOICES NO PAIN/DISC AT THIS TIME. VOICES NO NEEDS
--- NOTE | 2016-11-17 17:53 | NUR ---
DAUGHTERS STATED THAT THEY ARE GOING HOME. PATIENT RESTINGING WELL. CALL LIGHT WITHIN REACH. OXYGEN ON AT 2L PER N/C. GENERALIZED EDEMA IN ALL EXTREMETIES
[2016-11-17 20:00] VITALS: BP 146/57
--- NOTE | 2016-11-18 00:55 | NUR ---
REC'D PATIENT LYING SEMI FOWLERS IN BED. ALERT AND ORIENTED X4. DENIED PAIN AT THIS TIME. RESP ARE LABORED AND SHALLOW. INSTRUCTED TO CALL IF NEEDED ANYTHING. VERBALIZED UNDERSTANDING. DENIED NEEDS AT THIS TIME. BED LOW, LOCKED, CALL LIGHT IN REACH, BED ALARM ON.
--- NOTE | 2016-11-18 02:06 | NUR ---
PATIENT WANTED TO BE SCOOTED UP IN BED. IS COMFORTABLY NOW. DENIES FURTHER NEEDS. INTRUCTED TO CALL IF NEEDED ANYTHING. BED LOW, LOCKED, CALL LIGHT IN REACH.
--- NOTE | 2016-11-18 04:00 | NUR ---
PATIENT SLEEPING WITH NO DISTRESS NOTED CALL LIGHT WITHIN REACH.
--- NOTE | 2016-11-18 05:56 | NUR ---
PATIENT IS RESTING IN BED COMFORTABLY. DENIES NEEDS AT THIS TIME. INTRUCTED TO CALL IF NEEDED ANYTHING. VERBALIZED UNDERSTANDING. BED LOW, LOCKED, CALL LIGHT IN REACH, BED ALARM ON.
--- NOTE | 2016-11-18 07:15 | NUR ---
REPORT RECEIVED FROM RESPIRATORY SERVICES MANAGER NURSE. CALL LIGHT IN REACH.
[2016-11-18 08:35] VITALS: BP 142/49
--- NOTE | 2016-11-18 09:18 | NUR ---
ASSESSMENT COMPLETED. NORCO PO AND ATIVAN IV PER PATIENT REQUEST. OTHER AM MEDS ADMINISTERED. DAUGHTER AND GRANDDAUGHTER IN ROOM. CALL LIGHT IN REACH. WILL CONTINUE WITH PLAN OF CARE.
--- NOTE | 2016-11-18 10:19 | NUR ---
QUIET IN ROOM AT PRESENT DENIES ANY NEEDS AT THIS TIME.EYES CLOSED.
--- NOTE | 2016-11-18 12:13 | NUR ---
NOON MEDS ADMINISTERED. FSBS 103 SO NO COVERAGE REQUIRED. CALL LIGHT IN REACH.
--- NOTE | 2016-11-18 14:45 | NUR ---
DENIES NEEDS AT THIS TIME. CALL LIGHT IN REACH.
--- NOTE | 2016-11-18 15:59 | NUR ---
ATIVAN IV PER PATIENT REQUEST D/T ANXIETY. NOW REQUESTING PAIN MED. DAUGHTER AT BEDSIDE. CALL LIGHT IN REACH.
--- NOTE | 2016-11-18 16:10 | NUR ---
NORCO PO AND CARAFATE AND NYSTATIN. DAUGHTER REQUESTING THAT ATIVAN AND NORCO BE BROUGHT IN EVERY 4 HOURS WITHOUT ASKING. EXPLAINED TO THEM THAT IT IS ORDERED EVERY 4 HOURS NEEDED AND IT WILL HAVE TO BE ASKED FOR UNLESS CHANGED BY THE PHYSICIAN.
--- NOTE | 2016-11-18 17:03 | NUR ---
NO INSULIN NEEDED D/T BLOD SUGAR OF 111.
--- NOTE | 2016-11-18 18:02 | NUR ---
NO CHANGES IN INITIAL ASSESSMENT. CALL LIGHT IN REACH. WILL CONTINUE WITH PLAN OF CARE.
[2016-11-18 19:00] VITALS: BP 109/39
--- NOTE | 2016-11-19 02:54 | NUR ---
@1750 PATIENT LYING IN BED RESTING COMFORTABLY. NO DISTRESS NOTED. DENIED PAIN AT THIS TIME. INTRUCTED TO CALL IF NEEDED ANYTHING. VERBLAIZED UNDERSTANDING. BED LOW, LOCKED, CALL LIGHT IN REACH, ALARM ON.
--- NOTE | 2016-11-19 02:55 | NUR ---
@2200 ADMINISTERED MEDS PRESCRIBED. ASKED FOR SOME ICE WATER. DENIED FURTHER NEEDS AT THIS TIME. INTRUCTED TO CALL IF NEEDED ANYTHING. VERBLAIZED UNDERSTANDING. BED LOW LOCKED CALL LIGHT IN REACH.
--- NOTE | 2016-11-19 02:58 | NUR ---
RESTING COMFORTABLY IN BED. DENIES NEEDS AT THIS TIME INTRUCTED TO CALL IF NEEDED ANYTHING. BED LOW, LOCKED, CALL LIGHT IN REACH, ALARM ON.
--- NOTE | 2016-11-19 05:01 | NUR ---
RESTING WITH EYES CLOSED, NO DISTRESS OR DISCOMFORT NOTED, FALL PRECAUTIONS IN PLACE, CL IN REACH
--- NOTE | 2016-11-19 08:00 | NUR ---
PT ASSESSMENT COMPLETE PT BROTHER AT BEDSIDE. NO ACUTE DISTRESS NTOED VOICES ALLNEEDS OT STAFF PT HAS BAHTIA CATHETER NOTED DARK YELLOW URINE. HAS MATTEO DRAIN NOTED TO RIGHT UPPER QUADRANT. COMPLAINT OF PAIN GIVEN HYDROCODONE AND ATIVAN PER ORDER
[2016-11-19 08:04] VITALS: BP 129/42
--- NOTE | 2016-11-19 09:30 | NUR ---
PT COMPLAIN OF PAIN MORPHINE 2 MG IVP PER ORDER.
--- NOTE | 2016-11-19 16:00 | NUR ---
LYING IN BED WITH EYES CLOSED AT THIS TIME. FAMILY AT BEDSIDE. CALL LIGHT IN REACH, WILL CONTINUE WITH COMFORT MEASURES.
--- NOTE | 2016-11-19 18:00 | NUR ---
PT HAS SLEPT ALL DAY NO COMPLAINT PF PAIN FAMILY HAS BEEN AT BEDSIDE ALL DAY PT DAUGHTERS HAVE HAD MULTIPLE QUESTIONS ABOUT MEDICATIONS AND PTS HOSPICE STATUS. ALL QUESTIONS SATISFIED.
--- NOTE | 2016-11-19 23:59 | NUR ---
REC'D PATIENT LYING IN BED. RESTING COMFORTABLY. NO DISTRESS NOTED. DENIED PAIN AT THIS TIME. DENIED FURTHER NEEDS. INTRUCTED TO CALL IF NEEDED ANYTHING. VERBALIZED UNDERSTANDING. BED LOW, LOCKED, CALL LIGHT IN REACH, ALARM ON.
[2016-11-20] VITALS: BP 129/44
--- NOTE | 2016-11-20 01:57 | NUR ---
PATIENT IS RESTING IN BED COMFORTABLY. DENIES NEEDS AT THIS TIME. NO DISTRESS NOTED. INTRUCTED TO CALL IF NEEDED ANYTHING. BED LOW, LOCKED, CALL LIGHT IN REACH, ALARM ON.
--- NOTE | 2016-11-20 03:00 | NUR ---
PT IN BED WITH NO DISTRESS. RESPIRATIONS EVEN AND UNLABORED. SIDE RAILS X 2. BED LOW. CALL LIGHT IN REACH.
--- NOTE | 2016-11-20 07:45 | NUR ---
PT ASSESSMENT COMPLETE PT OPENS EYES TO VERBAL STIMULI HOWEVER FALLS IMMEDIATELY BACK TO SLEEP. PT EXTREMITIES COOL TO TOUCH AND NAILBEDS CYANOTIC. CAP REFILL IS GREATER THAN 3 SEC. LUNGS WITH DIMINISHED SOUNDS IN ALL CASTRO. BHATIA PATENT TO SCANT AMOUNT OF DARK URINE.DR CARL ROUNDS ORDERS TO STOP ALL FSBS AND ABT. ORDERS DC BROTHER AT BEDSIDE. DAUGHTERS NOTIFIED OF CHANGE IN CONDITION FROM YESTERDAYS ASSESSMENT AT SHIFT CHANGE
[2016-11-20 08:39] VITALS: BP 118/48
--- NOTE | 2016-11-20 10:00 | NUR ---
PT STARTED ON CONTINUOUS INFUSION OF MORPHINE AT 0.5 MG HR FAMILY AT BEDSIDE ARCHITECTURAL DESIGN PROFESSOR AT BEDSIDE WELL
[2016-11-20 15:13] VITALS: BP 118/48; Ht 160 cm; Wt 113.6 kg
--- NOTE | 2016-11-20 15:30 | NUR ---
PATIENT IS RESTING WITH EYES CLOSED. PATIENT'S DAUGHTER AT THE BEDSIDE STATED "SHE SAID SOMEONE IS GOING TO COME IN AND TURN HER. SHE IS NOT ASLEEP." ASKED PATIENT "DO YOU WANT TO BE TURNED?" PATIENT AGREED. WITH ASSIST FROM 3 NURING STUDENTS, TURNED PATIENT TO HER LEFT SIDE POSITIONED WITH PILLOWS. PATIENT DENIES FURTHER NEEDS.
--- NOTE | 2016-11-20 17:42 | NUR ---
PT HAS RESTED WELL ONLY REQUIRING ONE BOLUS DOSE OF MORPHINE 2 MG EARLIER THIS SHIFT DOES STILL AWAKEN TO VERBAL STIMULI. FAMILY REMAINS AT BEDSIDE.
[2016-11-20 19:00] VITALS: BP 96/34
--- NOTE | 2016-11-20 21:00 | NUR ---
PATIENT FAMILY MEMBER REQUESTING PATIENT RECEIVE ATIVAN DUE TO PATIENT MOANING AND BEING UNCOMFORTABLE. ATIVAN GIVEN ORDERED. SHIFT ASSESSMENT COMPLETED. PATIENT NOW RESTING QUIETLY AT THIS TIME. NO OTHER NEEDS VOICED BY FAMILY. BED LOW. CALL LIGHT IN REACH
--- NOTE | 2016-11-21 04:00 | NUR ---
PATIENT SLEEPING WITH NO DISTRESS NOTED. AGREE WITH CHANGE ADVISOR ASSESSMENT.
--- NOTE | 2016-11-21 07:23 | NUR ---
PT LETHARGIC RESP EVEN AND NONLABORED DR CARL AND NURSE AT BEDSIDE WITH FAMILY. PT. NONRESPONSIVE TO TALK AND TOUCH AT THIS TIME. BED AT LOWEST SETTING SRX2 CALL LIGHT WITHIN REACH FAMILY AT BEDSIDE WILL CONTINUE TO MONITOR
[2016-11-21 08:33] VITALS: BP 80/40
[2016-11-21 20:00] VITALS: BP 63/29
--- NOTE | 2016-11-21 20:06 | NUR ---
TURNED AND POSITIONED FOR COMFORT. MOANING LOUDLY. ATIVAN GIVEN PER FAMILY REQUEST FOR DISCOMFORT.
--- NOTE | 2016-11-21 20:30 | NUR ---
PATIENT WITHOUT B/P AND RESPIRATION. DR CARL,MENT[facility] HEALTH ORDERLY,AND HOSPICE NOTIFIED. FAMILY AT BEDSIDE.2039 HOSPICE [facility] HERE. 2099 DR GUTIERREZ HERE TO PRONOUNCE. HOME NOTIFIED.
== END 2016-11-21 21:00 | DRG 951 ==
LOC: D.MS 18:41
PROVIDERS: ADMIT Internal Medicine Hematology
DX: Z51.5 Encounter for palliative care (principal)